=== PATIENT | male | born 1995 | race Caucasian/White ===

== ENCOUNTER → 2020-08-27 12:14 | Outpatient (BNVA) | payer OTHER, SELFPAY | PROVIDERS: Visit Provider Physician Assistant Medical | DX: M72.2 Plantar fascial fibromatosis (principal) | CPT/HCPCS: 73610; 99203 ==

== ENCOUNTER → 2020-09-07 09:52 | Outpatient (BNVA) | payer OTHER, SELFPAY | PROVIDERS: Visit Provider Physician Assistant Medical | DX: M72.2 Plantar fascial fibromatosis (principal) | CPT/HCPCS: 99213 ==

== ENCOUNTER 2021-05-28 00:17 | Emergency (ER) | payer OTHER, SELFPAY ==
[2021-05-28 00:42] LABS: MANUAL DIFF FLAG NO
[2021-05-28 00:44] LABS: Basophils Absolute Auto 0.1 X10*3/uL (0.0-0.2); Basophils Percent Auto 0.8 % (0-2); Eosinophils Absolute Auto 0.3 X10*3/uL (0.0-0.4); Eosinophils Percent Auto 3.4 % (0-4); Hematocrit 42.1 % (42.0-52.0); Hemoglobin 14.7 g/dl (14.0-18.0); Imm Gran Abs Auto 0.02 X10*3/uL (0.00-0.03); Imm Gran Pct Auto 0.2 % (0.0-0.4); Lymphocytes Absolute Auto 3.5 X10*3/uL (1.2-4.9); Lymphocytes Percent Auto 37.7 % (20-40); Mean Corpuscular HGB Conc 34.9 g/dl (31.0-36.0); Mean Corpuscular Hemoglobin 31.1 pg (27.0-33.0); Mean Platelet Volume 8.9 fL (9.4-12.4); Monocytes Absolute Auto 0.5 X10*3/uL (0.1-1.2); Monocytes Percent Auto 5.1 % (2-11); Neutrophils Absolute Auto 4.9 x10*3/uL (2.0-8.3); Neutrophils Percent Auto 52.8 % (45-73); Platelet Count 338 X10*3/uL (160-400); Red Blood Count 4.73 X10*6/uL (4.60-5.80); Red Cell Distribution Width 11.9 % (11.0-16.0); White Blood Count 9.2 X10*3/uL (4.8-10.8)
[2021-05-28 00:50] VITALS: BP 146/80; PULSE 87; RESP 18; TEMP 36.8; O2SAT 97; BMI 35.4
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
[2021-05-28 01:14] LABS: Alanine Aminotransferase 33 U/L (0-40); Albumin Level 4.7 g/dL (3.5-5.0); Alkaline Phosphatase 53 U/L (39-117); Amylase 39 U/L (28-100); Anion Gap 14 (12-20); Aspartate Amino Transferase 20 U/L (5-37); Bilirubin Direct 0.2 mg/dL (0.0-0.5); Bilirubin Total 0.6 mg/dL (0.0-1.0); Blood Urea Nitrogen 15 mg/dL (9-16); Calcium 9.6 mg/dL (8.4-10.2); Carbon Dioxide 23 mmol/L (22-29); Chloride 105 mmol/L (96-108); Creatinine Clr Calc Pharmacy 129.8; Estimated Glomerular Filt Rate > 60; Glucose Random 98 mg/dL (60-115); Lipase 16 U/L (8-78); Sodium 138 mmol/L (135-145); Total Protein 7.2 g/dL (6.5-8.0)
[2021-05-28] MEDS: Post Exposure Medication Kit 1 KIT PO (01:29)
--- NOTE | 2021-05-28 01:30 | PC.NURSE ---
pt given post exposure kit. Reviewed medication. Pt a&o, no sob or chest pain. Review discharge instructions .
[2021-05-29 08:25] LABS: HBc Num1 0.07 S/CO (0.00-0.79); Hepatitis B Core Antibody Nonreactive (Nonreactive); ~HepC Num1 0.08 S/CO (0.00-0.79); ~Hepatitis B Surface Antibody REACTIVE (Nonreactive); ~Hepatitis C Antibody Nonreactive (Nonreactive)
[2021-05-29 09:17] LABS: HBsAGNum1 0.22 S/CO (0.00-0.99); HIV AB/AG Nonreactive (Nonreactive); HIV Num 1 0.05 S/CO (0.00-0.99); Hepatitis B Surface Antigen Negative (Negative)
== END 2021-05-28 01:38 | disposition home or self-care (01) ==
PROVIDERS: Physician Assistant Medical; Emergency Provider Internal Medicine
DX: Z04.2 Encounter for examination and observation following work accident (principal); Z77.21 Contact with and (suspected) exposure to potentially hazardous body fluids
CPT/HCPCS: 36415; 80048; 80076; 82150; 83690; 85025; 86704; 86706; 86803; 87340; 87389; 99283

== ENCOUNTER → 2021-05-29 08:47 | Outpatient (BNVA) | payer OTHER, SELFPAY | PROVIDERS: Visit Provider Physician Assistant Medical | DX: Z77.21 Contact with and (suspected) exposure to potentially hazardous body fluids (principal) | CPT/HCPCS: 99204 ==

== ENCOUNTER → 2021-06-03 10:45 | Outpatient (BNVA) | payer OTHER, SELFPAY | PROVIDERS: Visit Provider Physician Assistant Medical | DX: Z77.21 Contact with and (suspected) exposure to potentially hazardous body fluids (principal) | CPT/HCPCS: 99213 ==

== ENCOUNTER → 2021-06-11 09:38 | Outpatient (BNVA) | payer OTHER, SELFPAY | DX: Z77.21 Contact with and (suspected) exposure to potentially hazardous body fluids (principal) | CPT/HCPCS: 36415; 82150; 82565; 84450; 84460; 85025; 99211 ==

== ENCOUNTER 2022-06-12 20:41 | Emergency (ER) | payer OTHER, SELFPAY ==
--- NOTE | ~2022-06-12 | XR_ITS ---
EXAMINATION: XR KNEE, LEFT CLINICAL INFORMATION: Reason for Exam Fall/pain COMPARISON: None TECHNIQUE: 4 views of the knee FINDINGS: No acute fracture or dislocation. Joint spaces are maintained. No joint effusion. Soft tissues are unremarkable. XR/XR knee LT 4V IMPRESSION: * No acute osseous abnormality. * Joint spaces are maintained without significant degenerative change.
--- NOTE | ~2022-06-12 | XR_ITS ---
EXAMINATION: XR ELBOW, LEFT CLINICAL INFORMATION: Pain COMPARISON: None TECHNIQUE: 3 views of the elbow XR/XR elbow LT min 3V FINDINGS/IMPRESSION: No acute fracture or dislocation. Joint spaces are maintained. No joint effusion. Mild soft tissue swelling in the arm. IMPRESSION: No acute fracture or dislocation. Mild soft tissue swelling in the arm.
[2022-06-12 20:45] VITALS: BP 137/83; PULSE 103; RESP 16; O2SAT 98; BMI 32.3
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
== END 2022-06-12 23:18 | disposition home or self-care (01) ==
PROVIDERS: Emergency Provider Emergency Medicine
DX: S80.02XA Contusion of left knee, initial encounter (principal); S50.312A Abrasion of left elbow, initial encounter; W01.0XXA Fall on same level from slipping, tripping and stumbling without subsequent striking against object, initial encounter; Y93.9 Activity, unspecified; Y92.410 Unspecified street and highway as the place of occurrence of the external cause; Y99.0 Civilian activity done for income or pay
CPT/HCPCS: 73080; 73564; 99282; 99283

== ENCOUNTER → 2022-06-13 10:22 | Outpatient (BNVA) | payer OTHER, SELFPAY | PROVIDERS: Visit Provider Internal Medicine | DX: S80.212A Abrasion, left knee, initial encounter (principal); S50.312A Abrasion of left elbow, initial encounter; W18.39XA Other fall on same level, initial encounter | CPT/HCPCS: 99202 ==

== ENCOUNTER → 2022-06-16 07:58 | Outpatient (BNVA) | payer OTHER, SELFPAY | PROVIDERS: Visit Provider Physician Assistant Medical | DX: S80.02XA Contusion of left knee, initial encounter (principal); S50.02XA Contusion of left elbow, initial encounter; W01.0XXA Fall on same level from slipping, tripping and stumbling without subsequent striking against object, initial encounter | CPT/HCPCS: 99213 ==

== ENCOUNTER 2023-12-30 18:03 | Emergency (ER) | payer OTHER, SELFPAY ==
--- NOTE | ~2023-12-30 | XR_ITS ---
EXAMINATION: XR FINGER, RIGHT CLINICAL INFORMATION: Fourth finger laceration COMPARISON: None available. TECHNIQUE: Two views of the right ring finger. PA view of the hand. FINDINGS: The bones and soft tissues are normal. No fracture. Alignment is anatomic. Joint spaces are maintained. XR/XR finger RT min 2V IMPRESSION: Normal finger radiographs. Electronically signed by: Lore Pacheco MD 12/30/2023 09:04 PM EDT RP
[2023-12-30 19:24] VITALS: BP 135/84; PULSE 85; RESP 18; TEMP 36.6; O2SAT 100; BMI 34.4
--- NOTE | 2023-12-30 19:24 | ED_ITS ---
HPI - Extremity Injury (Upper) General Chief Complaint: Extremity Injury, Upper Stated Complaint: rt hand closed in the door-injury at work Time Seen by Provider: 12/30/23 21:07 Source: patient Limitations: no limitations History of Present Illness ED Provider: Marie Coombs PA-C HPI narrative: 28-year-old male presents with a hand injury. Patient states he shut his hand in a car door, injuring his right ring finger, sustaining a laceration. Tetanus is up-to-date. Related Data Previous Rx's ?Medication ?Instructions ?Recorded ondansetron 4 mg disintegrating 4 mg PO ONCE PRN nausea and 05/28/21 tablet vomiting #30 tabs Allergies Allergy/AdvReac Type Severity Reaction Status Date / Time Sulfa (Sulfonamide Allergy Unknown HIVES Verified 12/30/23 19:26 Antibiotics) Review of Systems Review of Systems: Yes all other systems are reviewed and are negative Constitutional: Constitutional: Denies fatigue and Denies fever(s) Musculoskeletal: Musculoskeletal: Denies arthralgias and Denies tingling Neurologic: Denies tingling Endocrine: Endocrine: Denies fatigue PMFSH Past Medical History Attestation statement: The following information was validated with the patient. Social History Social History Advance Directives: No Advance Directives Information Provided: No Do you have a plan to hurt others: No Plan Physical Exam Vital Signs: Vital Signs: Last Vital Signs Temp 98.3 F 12/30/23 21:43 Pulse 78 12/30/23 21:43 Resp 16 12/30/23 21:43 BP 129/80 12/30/23 21:43 Pulse Ox 98 12/30/23 21:43 O2 Del Method Room Air 12/30/23 21:43 BMI result Body Mass Index 34.4 Const: General: cooperative Resp: Effort & Inspection: normal respiratory effort Cardio: Other: Normal peripheral perfusion Extrem: Other: 2 cm linear laceration over the DIP of t he right ring finger, no longer bleedi ng, overlying tissue was somewhat macerated Psych: Other: Calm cooperative Course Course Course Narrative: This is an RME: Additional HPI, ROS, PE not included below will be deferred to primary provider. RME assessment and note performed by: Lennie Monge PA-C This is a [id number]-male who presents to the ER with complaints of fourth digit laceration. 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 When cm laceration noted to the DIP. Tenderness palpation in this region. Plan: xray finger Medical Decision Making Medical Decision Making MDM Narrative: 28-year-old male presents with a hand injury. Patient states he shut his hand in a car door, injuring his right ring finger, sustaining a laceration. Tetanus is up-to-date. No relevant chronic issues History: Per patient I have considered the following differential diagnoses: Fracture, dislocation, contusion, abrasion, laceration Plan: X-ray obtained from triage, no injury of the bone. This is a simple laceration repair. I have independently reviewed the following tests: X-ray right finger, XR/XR finger RT min 2V IMPRESSION: Normal finger radiographs. Electronically signed by: Lore Pacheco MD 12/30/2023 09:04 PM EDT Procedures Laceration Laceration 1: Site: hand Side (If applicable): right Size (cm): 2 Description: linear Depth: simple, single layer Local Anesthetic: lidocaine 2% and with epi Amount of anesthesia used (mL): 2 Pre-repair: irrigated extensively Skin layer closed with: nylon Size (cm): 5-0 Number of sutures: 4 Technique: simple, interrupted Discharge Plan Discharge Clinical Impression: Finger laceration Patient Disposition: Home, Self-Care Instructions: Laceration (ED) Additional Instructions: For stitches were used to repair the laceration. See home care instructions. Do not soak your hand in water excessively. Taking a shower is appropriate. Watch for signs of infection which would include redness, swelling or pus draining from the site or fever. Have the stitches removed in 7 days. Prescriptions: No Action ondansetron 4 mg tablet,disintegrating 4 mg PO ONCE PRN (Reason: nausea and vomiting) Qty: 30 0RF Print Language: Greenlandic
[2023-12-30 21:43] VITALS: BP 129/80; PULSE 78; RESP 16; TEMP 36.8; O2SAT 98
[2023-12-30 22:40] VITALS: BP 129/80; PULSE 78; RESP 16; TEMP 36.8; O2SAT 98
== END 2023-12-30 22:41 | disposition home or self-care (01) ==
PROVIDERS: Emergency Provider Student in an Organized Health Care Education/Training Program
DX: M79.641 Pain in right hand (principal); S61.411A Laceration without foreign body of right hand, initial encounter; W23.1XXA Caught, crushed, jammed, or pinched between stationary objects, initial encounter; Y93.89 Activity, other specified; Y92.810 Car as the place of occurrence of the external cause; Y99.0 Civilian activity done for income or pay
CPT/HCPCS: 12001; 73140; 99283; 99284

== ENCOUNTER → 2023-12-31 09:45 | Outpatient (BNVA) | payer OTHER, SELFPAY | PROVIDERS: Visit Provider Physician Assistant | DX: Z09 Encounter for follow-up examination after completed treatment for conditions other than malignant neoplasm (principal); S61.214A Laceration without foreign body of right ring finger without damage to nail, initial encounter; W23.0XXA Caught, crushed, jammed, or pinched between moving objects, initial encounter | CPT/HCPCS: 99202 ==

== ENCOUNTER → 2024-01-06 08:58 | Outpatient (BNVA) | payer OTHER, SELFPAY | PROVIDERS: Visit Provider Physician Assistant | DX: Z48.02 Encounter for removal of sutures (principal); S61.214A Laceration without foreign body of right ring finger without damage to nail, initial encounter; W23.0XXA Caught, crushed, jammed, or pinched between moving objects, initial encounter | CPT/HCPCS: 99213 ==

== ENCOUNTER 2024-02-29 12:12 | Emergency (ER) | payer BC, SELFPAY ==
--- NOTE | ~2024-02-29 | CT_ITS ---
EXAMINATION: CT ABDOMEN AND PELVIS WITH CONTRAST CLINICAL INFORMATION: Kidney stones, pyelonephritis COMPARISON: None available. TECHNIQUE: Multidetector volumetric images were obtained from the superior aspect of the liver through the pubic symphysis following administration 85 mL of Omnipaque 350 intravenous contrast. Sagittal and coronal reformatted images were obtained on the technologist's workstation. Oral contrast: No This CT examination was performed using dose optimization techniques as appropriate, variously including the following: *Automated exposure control *Adjustment of mA and/or kV according to patient size (this includes techniques or standardized protocols for targeted exams where dose is matched to indication/reason for exam; i.e. extremities or head) *Use of iterative reconstruction technique DLP: 809 mGy-cm FINDINGS: LUNG BASES: The visualized lung bases are unremarkable. LIVER, GALLBLADDER, AND BILIARY TREE: The liver is normal in size, shape, and attenuation. No focal hepatic lesion or biliary ductal dilatation is present. The gallbladder is unremarkable with no evidence of radiopaque gallstones, gallbladder wall thickening, or obvious pericholecystic inflammatory changes. PANCREAS: Unremarkable. SPLEEN: Splenomegaly. Trace fluid along the posterior margin of the spleen. ADRENAL GLANDS: Unremarkable. KIDNEYS AND URETERS: Punctate calcification in the lower pole of the right kidney with adjacent dilated calyx with overlying cortical thinning. There is also subtle amorphous density in the nondilated renal pelvis which may represent calcification or renally excreted contrast. Nephrograms are symmetric. BLADDER: Unremarkable. GASTROINTESTINAL TRACT: The small and large bowel are unremarkable. The appendix is unremarkable. ABDOMINAL WALL: No significant hernia is appreciated. LYMPH NODES: There are mildly enlarged lymph nodes throughout a slightly hazy small bowel mesentery images nonspecific. VASCULAR: Unremarkable. PELVIC VISCERA: Unremarkable. OSSEOUS STRUCTURES: Unremarkable. CT/CT abdomen pelvis w IV con IMPRESSION: 1. There is a punctate calcification or excreted contrast in the lower pole of the right kidney with adjacent mildly dilated calyx and overlying cortical thinning. There is also subtle amorphous density in the nondilated renal pelvis which may represent calcification or renally excreted contrast. 2. Splenomegaly. 3. Mildly enlarged lymph nodes throughout a slightly hazy small bowel mesentery, nonspecific. Trace fluid along the posterior margin of the spleen. Fleischner guidelines were followed. Electronically signed by: Rocky Varma MD 02/29/2024 07:30 PM EST RP
--- NOTE | ~2024-02-29 | XR_ITS ---
EXAMINATION: XR CHEST CLINICAL INFORMATION: fevers COMPARISON: Chest radiograph November 02, 2017 TECHNIQUE: 2 views of the chest were obtained. FINDINGS: Prominent pulmonary vasculature. The heart is normal in size. No focal consolidation. No pleural effusion. No pneumothorax. XR/XR chest 2V IMPRESSION: Prominent pulmonary vasculature. Electronically signed by: Norman Phelps MD 02/29/2024 07:47 PM EST
[2024-02-29 12:34] VITALS: BP 155/79; PULSE 79; RESP 16; TEMP 36.7; O2SAT 97; BMI 34.4
--- NOTE | 2024-02-29 12:39 | ED_ITS ---
HPI - Male Genitourinary General Chief complaint: Urogenital-Male Stated complaint: Kidney/liver issues sent by urgent care Time Seen by Provider: 02/29/24 16:42 History of Present Illness ED Provider: Tuan SEGOVIA Narrative: The patient is a 28-year-old male who is generally in good health. He has been sick for about 9 days. Apparently his children have been sick with respiratory viruses during the last few weeks and he assumed that he had caught some kind of virus from 1 of his children. He says that he has ago, on ThursdayFebruary 20 he had a temperature of 102 degrees. He had to work the next few days and so took ibuprofen and acetaminophen to manage his fevers while he worked. On ThursdayFebruary 23 he went to an urgent care office and was prescribed a course of azithromycin and a course of prednisone. He finished these medications yesterday morning. He says that he believes he has continued to have some fevers despite these medications. He also noticed that his urine has been dark for the last several days. Today he went back to the urgent care center where he gave a urine sample that looked quite dark and they referred him to the emergency room. The patient says that he has had what he describes as ?postnasal drip? but he has not really had a lot of other symptoms. No definite headaches. No definite sore throat. No definite runny nose. No definite coughing. No abdominal pain. No diarrhea. No dysuria. He says he has been experiencing night sweats. he has not had a significant sore throat. He has had a tonsillectomy. He has felt some swollen lymph nodes on his neck. Related Data Previous Rx's ?Medication ?Instructions ?Recorded ondansetron 4 mg disintegrating 4 mg PO ONCE PRN nausea and 05/28/21 tablet vomiting #30 tabs Allergies Allergy/AdvReac Type Severity Reaction Status Date / Time Sulfa (Sulfonamide Allergy Unknown HIVES Verified 02/29/24 12:36 Antibiotics) Review of Systems 2 Review of Systems: Yes all other systems are reviewed and are negative PMFSH Social History Social History Advance Directives: No Advance Directives Information Provided: No Do you have a plan to hurt others: No Plan Physical Exam 2 Vital Signs: Vital Signs: Last Vital Signs Temp 98.1 F 02/29/24 20:22 Pulse 90 02/29/24 20:22 Resp 20 02/29/24 20:22 BP 119/64 02/29/24 20:22 Pulse Ox 97 02/29/24 20:22 O2 Del Method Room Air 02/29/24 20:22 BMI result Body Mass Index 34.4 Const: Other: The patient is a 28-year-old male who looks as though he is ordinarily in good health. He looks somewhat drawn and worn out but he does not appear in acute distress. HEENT: Other: Face is symmetrical. The posterior pharynx does not show any significant erythema or exudate. There is no tonsillar tissue apparent. Airway is clear. Eyes: Other: The patient's eyelids look mildly puffy. Pupils are round equal and reactive. Extraocular movements are intact. No conjunctival injection. Neck: Other: The neck is supple. There was some tender adenopathy in the left posterior cervical chain. Resp: Other: No increased work of breathing. I that there were some slight adventitious sounds, Possibly crackles, in the right midlung field. No other abnormalities on exam. Cardio: Rate: regular rate Heart sounds: S1 normal heart sound present and Murmur heart sound present ( No cardiac murmur) GI: Other: abdomen is soft and nontender : General: Yes no CVA tenderness Back/Spine/Pelvis: Back: no CVA tenderness Skin: Other: skin is pale and dry. No rash. Neuro: Other: The patient is awake and alert with normal mental status. Cranial nerves are intact. He moves extremities normally. He is neurologically intact. Demeanor is benign. Extrem: Other: No peripheral edema. Course Course Course Narrative: RME: 28 yold male presents to the for dark urine. patient seny by urgent care for dark urine. patient presently being treated for walking pneumonia, but denies any chest pain or SOB. labs UA ordered. Medications Administered Discontinued Medications Generic Name Dose Route Start Last Admin Trade Name Freq PRN Reason Stop Dose Admin Sodium Chloride 1,000 mls @ 999 mls/hr 02/29/24 18:00 02/29/24 18:10 Ns IV 02/29/24 19:00 999 mls/hr .Q1H1M MICHAEL Administration Iohexol 100 ml 02/29/24 17:07 02/29/24 17:07 Iohexol 350 Mg/Ml 100 Ml Infus..Btl IV 02/29/24 17:08 85 ml ONCE ONE Administration Medical Decision Making Medical Decision Making [facility] Narrative: The patient is a generally healthy 28-year-old who presents with an approximately 9 day illness characterized by fevers, night sweats and a sense of congestion but without a kinsey cough or shortness of breath. He experienced no improvement with a course of azithromycin and prednisone. Today he return to urgent care center where he was found to have dark urine and was referred to the emergency room. Here his bilirubin is somewhat elevated and he has some other LFT abnormalities. A CT scan of the abdomen and pelvis had been ordered at triage. His blood work is remarkable for an elevated white count with a significant lymphocytosis characterized by atypical lymphocytes. This is suggestive of the possibility of mononucleosis. A Monospot was positive. I think the patient probably has mononucleosis and that this likely accounts for all of his symptoms. before the Monospot result was available hepatitis panel had also been sent. The patient's CT scan show mesenteric adenopathy and splenomegaly that I suspect is also consistent with mononucleosis. The CT scan also included what I suspect is an incidental finding related to the right kidney: IMPRESSION: 1. There is a punctate calcification or excreted contrast in the lower pole of the right kidney with adjacent mildly dilated calyx and overlying cortical thinning. There is also subtle amorphous density in the nondilated renal pelvis which may represent calcification or renally excreted contrast. Overall I felt the patient could be discharged with a diagnosis of mononucleosis and recommendation for supportive care at home. 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 He was given a work note for light duty. He was advised to use sparing doses of ibuprofen for symptoms. The patient does not have a primary care doctor. He is encouraged to try to get a primary care doctor. Foot with regard to the finding related to the the right kidney on his CT scan I suspect this is an incidental finding of little clinical relevance. Nevertheless he should follow-up with urology to discuss this finding. If the patient feels significantly worse he should return to the emergency room. Hepatitis panel is still pending. Lab Data 02/29/24 14:14 02/29/24 14:14 Labs: Lab Results 02/29/24 02/29/24 02/29/24 Range/Units 14:14 14:18 17:15 WBC 23.8 H (4.8-10.8) X10*3/uL RBC 4.92 (4.60-5.80) X10*6/uL Hgb 15.2 (14.0-18.0) g/dl Hct 43.4 (42.0-52.0) % MCV 88.2 (80.0-98.0) fL MCH 30.9 (27.0-33.0) pg MCHC 35.0 (31.0-36.0) g/dl RDW 12.8 (11.0-16.0) % Plt Count TNP MPV TNP Immature Gran % (Auto) Cancelled Neut % (Auto) Cancelled Lymph % (Auto) Cancelled [place] % (Auto) Cancelled Eos % (Auto) Cancelled Baso % (Auto) Cancelled Lymph # (Auto) Cancelled [place] # (Auto) Cancelled Eos # (Auto) Cancelled Baso # (Auto) Cancelled Abs Immat Gran (auto) Cancelled Absolute Neuts (auto) Cancelled Absolute Nucleated RBC 0.000 (0.0-0.012) X10*3/uL Nucleated RBC % (auto) 0.0 (0.0-0.2) /100WBC Neutrophils % (Manual) 9 L (45-73) % Band Neutrophils % 0 L (3-5) % Lymphocytes % (Manual) 16 L (20-40) % Atypical Lymphs % (Man) 66 H (0-6) % Monocytes % (Manual) 9 (2-11) % Abs Neuts (Manual) 2.1 (2.0-8.3) X10*3/uL Lymphocytes # (Manual) 3.8 (1.2-4.9) X10*3/uL Atyp Lymphs # (Manual) 15.7 x10*3/uL Monocytes # (Manual) 2.1 H (0.1-1.2) X10*3/uL Smudge Cells PRESENT Platelet Estimate NORMAL (NORMAL) Plt Morphology Comment NOTED RBC Morphology NORMAL Smear Path Review SEE NOTE PT 11.1 (10.9-12.4) SEC INR 1.0 (0.9-1.1) Sodium 139 (135-145) mmol/L Potassium 3.6 (3.3-5.1) mmol/L Chloride 104 (96-108) mmol/L Carbon Dioxide 30 H (22-29) mmol/L Anion Gap 9 L (12-20) BUN 10 (9-16) mg/dL Creatinine 0.88 (0.5-1.4) mg/dL Estim Creat Clear Calc 151.5 Estimated GFR > 60 Random Glucose 105 (60-115) mg/dL Lactic Acid 1.0 (0.5-2.0) mmol/L Calcium 8.5 D (8.4-10.2) mg/dL Total Bilirubin 3.1 H (0.0-1.0) mg/dL Direct Bilirubin 2.4 H (0.0-0.5) mg/dL AST 295 H (5-37) U/L ALT 705 H (0-40) U/L Alkaline Phosphatase 209 H (39-117) U/L Total Creatine Kinase 10 L (38-174) U/L C-Reactive Protein 0.84 H (< or = 0.50) mg/dL Total Protein 7.3 (6.5-8.0) g/dL Albumin 3.8 (3.5-5.0) g/dL Lipase 49 (8-78) U/L Urine Color Dark Yellow Urine Appearance Clear Urine pH 6.0 (5.0-9.0) Ur Specific [place] >= 1.030 H (1.005-1.025) Urine Protein 100 (2+) H (Neg-Trace) mg/dL Urine Glucose (UA) Negative (Negative) mg/dL Urine Ketones Trace (Negative) mg/dL Urine Blood Negative (Negative) Urine Nitrite Positive H (Negative) Ur Leukocyte Esterase Small (1+) H (Negative) Urine RBC 0-2 (0-2) /HPF Urine WBC 0-5 (0-5) /HPF Ur Squamous Epith Cells 3-5 (0-2) /HPF Urine Bacteria None Seen (None Seen) Hyaline Casts 3-5 (0-2) /LPF Acetaminophen (<30) mcg/mL Monoscreen (Negative) Influenza Type A (PCR) (Negative) Influenza Type B (PCR) (Negative) RSV RNA Qual (PCR) (Negative) SARS-CoV-2 RNA (RT-PCR) (Negative) 02/29/24 02/29/24 Range/Units 17:23 18:10 WBC (4.8-10.8) X10*3/uL RBC (4.60-5.80) X10*6/uL Hgb (14.0-18.0) g/dl Hct (42.0-52.0) % MCV (80.0-98.0) fL MCH (27.0-33.0) pg MCHC (31.0-36.0) g/dl RDW (11.0-16.0) % Plt Count MPV Immature Gran % (Auto) Neut % (Auto) Lymph % (Auto) [place] % (Auto) Eos % (Auto) Baso % (Auto) Lymph # (Auto) [place] # (Auto) Eos # (Auto) Baso # (Auto) Abs Immat Gran (auto) Absolute Neuts (auto) Absolute Nucleated RBC (0.0-0.012) X10*3/uL Nucleated RBC % (auto) (0.0-0.2) /100WBC Neutrophils % (Manual) (45-73) % Band Neutrophils % (3-5) % Lymphocytes % (Manual) (20-40) % Atypical Lymphs % (Man) (0-6) % Monocytes % (Manual) (2-11) % Abs Neuts (Manual) (2.0-8.3) X10*3/uL Lymphocytes # (Manual) (1.2-4.9) X10*3/uL Atyp Lymphs # (Manual) x10*3/uL Monocytes # (Manual) (0.1-1.2) X10*3/uL Smudge Cells Platelet Estimate (NORMAL) Plt Morphology Comment RBC Morphology Smear Path Review PT (10.9-12.4) SEC INR (0.9-1.1) Sodium (135-145) mmol/L Potassium (3.3-5.1) mmol/L Chloride (96-108) mmol/L Carbon Dioxide (22-29) mmol/L Anion Gap (12-20) BUN (9-16) mg/dL Creatinine (0.5-1.4) mg/dL Estim Creat Clear Calc Estimated GFR Random Glucose (60-115) mg/dL Lactic Acid (0.5-2.0) mmol/L Calcium (8.4-10.2) mg/dL Total Bilirubin (0.0-1.0) mg/dL Direct Bilirubin (0.0-0.5) mg/dL AST (5-37) U/L ALT (0-40) U/L Alkaline Phosphatase (39-117) U/L Total Creatine Kinase (38-174) U/L C-Reactive Protein (< or = 0.50) mg/dL Total Protein (6.5-8.0) g/dL Albumin (3.5-5.0) g/dL Lipase (8-78) U/L Urine Color Urine Appearance Urine pH (5.0-9.0) Ur Specific [place] (1.005-1.025) Urine Protein (Neg-Trace) mg/dL Urine Glucose (UA) (Negative) mg/dL Urine Ketones (Negative) mg/dL Urine Blood (Negative) Urine Nitrite (Negative) Ur Leukocyte Esterase (Negative) Urine RBC (0-2) /HPF Urine WBC (0-5) /HPF Ur Squamous Epith Cells (0-2) /HPF Urine Bacteria (None Seen) Hyaline Casts (0-2) /LPF Acetaminophen < 3 (<30) mcg/mL Monoscreen Positive A (Negative) Influenza Type A (PCR) NEGATIVE (Negative) Influenza Type B (PCR) NEGATIVE (Negative) RSV RNA Qual (PCR) NEGATIVE (Negative) SARS-CoV-2 RNA (RT-PCR) NEGATIVE (Negative) Discharge Plan Discharge Clinical Impression: Infectious mononucleosis Patient Disposition: Home, Self-Care Instructions: Mononucleosis (ED) Additional Instructions: You have tested positive for mononucleosis. Mononucleosis is a viral illness for which there is no specific treatment. The duration of symptoms is highly variable but can last up to a few weeks. Please rest and take it easy as much as you can over the next several days. May take 400 mg of ibuprofen up to 3 times a day as needed for symptoms. I would avoid acetaminophen at the moment. Drink a lot of fluids. The CT scan shows that your spleen is somewhat large. Please avoid any activities that might put you at risk for an injury to your spleen. There is also an incidental finding on your CT scan regarding your right kidney. I would recommend following up with the urologist to see if this is a finding that needs to be pursued or not. Please work on getting a regular primary care doctor. I would recommend light duty for the next week. Return to the emergency room if significantly worse. Prescriptions: No Action ondansetron 4 mg tablet,disintegrating 4 mg PO ONCE PRN (Reason: nausea and vomiting) Qty: 30 0RF Referrals: [facility] [place] Urology Services [Provider Group] (Incidental finding on CT scan regarding right kidney) Interventions: ED Discharge Assessment Last Done: 02/29/24 20:22 Discharge Date/Time: 02/29/24 20:23 Print Language: Montserratian
[2024-02-29 14:27] LABS: Hematocrit 43.4 % (42.0-52.0); Hemoglobin 15.2 g/dl (14.0-18.0); Mean Corpuscular Hemoglobin 30.9 pg (27.0-33.0); Mean Corpuscular Volume 88.2 fL (80.0-98.0); PLT CLUMP 1; Red Blood Count 4.92 X10*6/uL (4.60-5.80)
[2024-02-29 14:29] LABS: Red Cell Distribution Width 12.8 % (11.0-16.0)
[2024-02-29 14:30] LABS: WBC ABN SCTR FOR CBC 1
[2024-02-29 14:51] LABS: Alanine Aminotransferase 705 U/L (0-40); Albumin Level 3.8 g/dL (3.5-5.0); Alkaline Phosphatase 209 U/L (39-117); Anion Gap 9 (12-20); Aspartate Amino Transferase 295 U/L (5-37); Bilirubin Total 3.1 mg/dL (0.0-1.0); Blood Urea Nitrogen 10 mg/dL (9-16); Calcium 8.5 mg/dL (8.4-10.2); Carbon Dioxide 30 mmol/L (22-29); Chloride 104 mmol/L (96-108); Creatinine Clr Calc Pharmacy 151.5; Estimated Glomerular Filt Rate > 60; Glucose Random 105 mg/dL (60-115); Potassium 3.6 mmol/L (3.3-5.1); Sodium 139 mmol/L (135-145); Total Protein 7.3 g/dL (6.5-8.0)
[2024-02-29 15:03] LABS: Appearance Urine Clear; Color Urine Dark Yellow; Glucose Urine UA Negative (Negative); Leukocyte Esterase Urine Small (1+) (Negative); Nitrite Urine Positive (Negative); Specific Gravity - Urine >= 1.030 (1.005-1.025); UMIC TRIGGER UACC YES; Urine Blood Negative (Negative); Urine Ketones Trace mg/dL (Negative); Urine Protein 100 (2+) mg/dL (Neg-Trace)
[2024-02-29 15:12] LABS: Bacteria Urine None Seen (None Seen); RBC Urine 0-2 /HPF (0-2); UACC Culture Trigger YES; WBC Urine 0-5 /HPF (0-5)
[2024-02-29 15:33] LABS: Atypical Lymphs Percent Manual 66 % (0-6); Band Neutrophils Percent 0 % (3-5); Lymphocytes Percent Manual 16 % (20-40); Monocytes Percent Manual 9 % (2-11); Neutrophils Percent Manual 9 % (45-73); Platelet Estimate NORMAL (NORMAL); Platelet Morphology Comment NOTED; RBC Morphology NORMAL; Smudge Cells PRESENT
[2024-02-29 15:34] LABS: Atypical Lymph Absolute Manual 15.7 x10*3/uL; Lymphocytes Absolute Manual 3.8 X10*3/uL (1.2-4.9); Monocytes Absolute Manual 2.1 X10*3/uL (0.1-1.2); Neutrophils Absolute Manual 2.1 X10*3/uL (2.0-8.3); White Blood Count 23.8 X10*3/uL (4.8-10.8)
[2024-02-29 16:34] LABS: Lipase 49 U/L (8-78)
[2024-02-29 16:52] VITALS: BP 125/77; PULSE 83; RESP 18; TEMP 37; O2SAT 96
[2024-02-29] MEDS: iohexoL 350 MG/ML 100 ML INFUS..BTL IV (17:07)
[2024-02-29 17:22] LABS: Bilirubin Direct 2.4 mg/dL (0.0-0.5)
[2024-02-29 17:44] LABS: Prothrombin Time 11.1 SEC (10.9-12.4)
[2024-02-29 17:49] LABS: Acetaminophen LAB < 3 mcg/mL (<30)
[2024-02-29] MEDS: 0.9 % Sodium Chloride 1,000 ML 999 ML IV (18:10)
[2024-02-29 18:11] LABS: C Reactive Protein 0.84 mg/dL (< or = 0.50)
[2024-02-29 18:38] LABS: Monotest Positive (Negative)
[2024-02-29 19:56] VITALS: BP 119/64; PULSE 90; RESP 20; TEMP 36.7; O2SAT 97
[2024-02-29 19:56] LABS: Influenza A PCR NEGATIVE (Negative); Influenza B PCR NEGATIVE (Negative); Resp Syncy Virus RNA Qual PCR NEGATIVE (Negative); SARS COV2 PCR INHOUSE NEGATIVE (Negative)
[2024-02-29 20:22] VITALS: BP 119/64; PULSE 90; RESP 20; TEMP 36.7; O2SAT 97
[2024-03-03 14:39] LABS: HBS Num1 517.67 mIU/mL (0-7.99); HBc Num1 0.12 S/CO (0.00-0.79); HBsAGNum1 0.39 S/CO (0.00-0.99); Hepatitis A Antibody IgM 0.16 Index (0-0.79); Hepatitis B Core Antibody Nonreactive (Nonreactive); Hepatitis B Surface Antigen Negative (Negative); ~Hepatitis A Antibody IgM Nonreactive (Nonreactive); ~Hepatitis B Surface Antibody REACTIVE (Nonreactive); ~Hepatitis C Antibody Nonreactive (Nonreactive)
== END 2024-02-29 20:23 | disposition home or self-care (01) ==
PROVIDERS: Physician Assistant; Emergency Provider Emergency Medicine
DX: B27.90 Infectious mononucleosis, unspecified without complication (principal); Z03.818 Encounter for observation for suspected exposure to other biological agents ruled out; R09.89 Other specified symptoms and signs involving the circulatory and respiratory systems
CPT/HCPCS: 0241U; 36415; 71046; 74177; 80053; 80143; 81001; 81003; 82248; 82550; 83605; 83690; 85007; 85027; 85610; 86140; 86308; 86704; 86706; 86709; 86803; 87040; 87086; 87340; 99284; Q9967

== ENCOUNTER 2024-03-05 09:12 | Outpatient (AMB) | payer BC, SELFPAY ==
--- NOTE | 2024-03-05 10:07 | MHC.OFFWIV ---
Intake Vital Signs 03/05/24 10:14 Weight 239 lb BP 118/70 Blood Pressure Location Lt brachial Position Sitting Pulse 80 Pulse Source Pulse Oximeter Temp 98.1 F Temp Source Oral Pulse Oximetry (%) 98 Oxygen Delivery Method Room Air Intake Visit Reasons: EP + [place] thursday, pain increased since Intake Note: Patient here for [place] and has pain that has increased since he was first diagnosed. Patient Tobacco Use Status: Never used Tobacco Allergies Sulfa (Sulfonamide Antibiotics) Allergy (Unknown, Verified 05/12/24 08:06) HIVES Do you need a note to return to daycare/school/sports/work: No HPI EP + [place] thursday, pain increased since HPI Details Patient is a 28 year old male who complains of severe pain to the bilateral sides his neck, since getting diagnosed with mononucleosis last week at [facility]. He has been jaundiced since his ED visit, and this has progressed. He is also still extremely sweaty, especially when sleeping at night, and fatigued. He does not report much abdominal discomfort, and although his appetite is decreased, he can tolerate oral intake. He reports that he is trying to get adequate water intake. He is overall resting, except for a few hours a few days ago when he covered a desk shift at work. 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 He has difficulty using his arms, and feels that they are weak. He denies acute trauma, current fever, vomiting or diarrhea, chest pain or respiratory distress, abdominal or pelvic pain or back pain, dizziness or vertigo, respiratory symptoms, or other significant associated symptoms. He discussed his symptoms with his primary care who advised that he come to the walk-in for further labs. [facility] Surgical History History of knee surgery History of tonsillectomy Family History (Updated 05/12/24 @ 08:11 by José Biggs PA-C) Father COPD (chronic obstructive pulmonary disease) Mother Lung cancer Social History (Updated 05/12/24 @ 08:11 by José Biggs PA-C) Housing: House Alcohol intake: current Alcohol intake frequency: a few times a month Alcohol type: other Patient Tobacco Use Status: Never used Tobacco e-Cigarette/Vaping Use: Never Used Second Hand Smoke Exposure: No service: No Current occupational status: employed Current occupation: [employer] Current occupational exposures/hazards: No Cognitive needs: No Hearing needs: No Vision needs: No Review of Systems Const All systems reviewed & are unremarkable except as noted in HPI and below Physical Exam Vital Signs: Last Vital Signs Temp 98.1 F 03/05/24 10:14 Pulse 80 03/05/24 10:14 BP 118/70 03/05/24 10:14 Pulse Ox 98 03/05/24 10:14 Oxygen Delivery Method Room Air 03/05/24 10:14 Const General: cooperative, alert, awake, Physically active, diaphoretic, ill appearing, tired appearing and well groomed; No healthy appearing, comfortable, anxious, intoxicated appearing or poor hygiene Nutritional Appearance: average body habitus Orientation/consciousness: patient oriented x3 Limitations: no limitations HEENT Head: Yes normal to inspection, Yes normocephalic and Yes atraumatic Ears: hearing grossly normal bilaterally, external ears normal, TM's normal bilaterally and EAC's normal General nose exam: Normal external nose present, Normal nares present, No nasal polyps present, Normal nasal mucous membranes and turbinates present, Normal septum present and No nasal discharge present Face and sinus: Yes normal facial exam, Yes sinuses nontender and Yes face symmetric Mouth: Normal oral and palatal mucosa present, lip normal and tongue normal Throat: Yes posterior oropharynx normal, Yes abnormal tonsil (mildly erythematous bilaterally), No peritonsillar mass, No postnasal drainage, No uvular edema and No cobblestoning Eyes General: appearance normal, both eyes and all related structures Neck Neck: Yes normal visual inspection, Yes trachea midline, Yes supple and No anterior neck swelling Chest Chest palpation & inspection: normal palpation of entire chest wall Resp Effort & Inspection: normal respiratory effort, able to speak in complete sentences, no audible wheezes, no cough, no grunting, not labored, no nasal flaring, no retractions and symmetric chest movement Auscultation: clear to auscultation bilaterally, no crackles, no rales, no rhonchi, no wheezes, lung sounds not diminished and No rub present Cardio Palpation: normal PMI Rate: regular rate Rhythm: regular rhythm Heart sounds: S1 normal heart sound present and S2 normal heart sound present Back/Spine/Pelvis Cervical Spine: cervical muscular tenderness (B/L) and pain with cervical ROM Skin General skin exam: jaundice and other (diaphoretic, warm) Neuro General: patient oriented x3 Extrem Right upper extremity: shoulder/upper arm (weakness) Psych Appearance: grossly normal Mental Status: mental status grossly normal Speech and movement: Normal speech and movement present Affect: normal affect Attitude: cooperative Thought process: Normal thought process present Insight: Good insight present (Psych) Judgement: Good judgement present (Psych) Assessment & Plan Assessment & Plan (1) Mononucleosis: Code(s): B27.90 - Infectious mononucleosis, unspecified without complication Qualifiers: Infectious mononucleosis complication: other complications Infectious mononucleosis etiology: unspecified organism Qualified Code(s): B27.99 - Infectious mononucleosis, unspecified with other complication Plan: Patient is a 28 year old male who complains of severe pain to the bilateral sides his neck, since getting diagnosed with mononucleosis last week at [facility]. He has been jaundiced since his ED visit, and this has progressed. He is also still extremely sweaty, especially when sleeping at night, and fatigued. He does not report much abdominal discomfort, and although his appetite is decreased, he can tolerate oral intake. He reports that he is trying to get adequate water intake. He is overall resting, except for a few hours a few days ago when he covered a desk shift at work. 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 He has difficulty using his arms, and feels that they are weak. He denies acute trauma, current fever, vomiting or diarrhea, chest pain or respiratory distress, abdominal or pelvic pain or back pain, dizziness or vertigo, respiratory symptoms, or other significant associated symptoms. He discussed his symptoms with his primary care who advised that he come to the walk-in for further labs. I agree that he does need further lab work, and due to his symptoms I think further evaluation is warranted. He has exquisite tenderness to touch to the left greater than right neck muscles and trapezius muscles. On the left side he has some mild erythema to the area. Although he was diagnosed with mononucleosis and associated hepatitis, he reports that he has concern about possible Lyme disease, since he got a tick bite a few months ago that he reports was attached for a few days and engorged when he found it. He was not tested for tick-borne illnesses, or prophylactically treated. He desires evaluation for this. Since I can not evaluate him further in a timely manner, and because his some symptoms have progressed, I advised that he go back to the emergency department for further evaluation and treatment. He would benefit from pain management as well as possibly from more IV fluids. He was amenable to this, and an expect was called in to [facility] to MARIS Coombs in the [facility] Coding Level of Care Code Est Pt Level 4 (12031) Diagnoses Infectious mononucleosis, with other complication, infectious mononucleosis due to unspecified organism B27.99 Infectious mononucleosis complication: other complications Infectious mononucleosis etiology: unspecified organism
[2024-03-05 10:14] VITALS: BP 118/70; PULSE 80; TEMP 36.7; O2SAT 98
== END 2024-03-05 11:14 | disposition home or self-care (01) ==
PROVIDERS: Visit Provider Physician Assistant Medical
DX: B27.99 Infectious mononucleosis, unspecified with other complication (principal)

== ENCOUNTER → 2024-03-05 09:12 | Outpatient (BNVA) | payer BC, SELFPAY | PROVIDERS: Visit Provider Physician Assistant Medical ==

== ENCOUNTER 2024-03-05 11:40 | Emergency (ER) | payer BC, SELFPAY ==
--- NOTE | ~2024-03-05 | CT_ITS ---
CLINICAL HISTORY: R sided neck pain redness recent mono CT soft tissue neck with contrast Comparison: None Findings: Mild mucosal thickening within the paranasal sinuses. Mild prominence of adenoidal soft tissues. Unremarkable tonsils, hypopharynx and larynx. Normal epiglottis. Numerous lymph nodes within the neck soft tissues, measuring up to 1.2 cm in short axis dimension. Salivary glands are unremarkable. No sialoliths. Thyroid gland is unremarkable. Visualized lung apices are clear. No acute fractures. No soft tissue mass or fluid collection. IMPRESSION: 1. Mild lymphadenopathy within the neck. 2. Prominence of adenoidal soft tissues. This document has been electronically signed by: Brenda Cummings MD on 03/05/2024 17:58:24
--- NOTE | ~2024-03-05 | XR_ITS ---
CLINICAL HISTORY: chest pain 1 view chest x-ray Comparison: CR/SR - XR CHEST 2V - 02/29/24 17:58 EST Findings: The lungs are clear. Normal size heart. No acute fracture. IMPRESSION: 1. No acute findings. This document has been electronically signed by: Brenda Cummings MD on 03/05/2024 16:44:36
--- NOTE | ~2024-03-05 | US_ITS ---
CLINICAL HISTORY: RUQ pain, jaundice, elevated liver enzymes US abdomen limited Comparison: CT/SR - CT ABDOMEN PELVIS W IV CON - 02/29/24 17:00 EST Findings: The visualized pancreas is normal. The visualized IVC is unremarkable. The liver measures 18 cm in length. Unremarkable echogenicity. No gross evidence of focal liver lesion. Evaluation of liver parenchyma mildly limited. There is no intrahepatic bile duct dilatation. The common duct is 3 mm in diameter. The gallbladder is normal. There is no sonographic [place] sign. The main portal vein is antegrade. No ascites. IMPRESSION: There may be a mild degree of hepatomegaly. This document has been electronically signed by: Brenda Cummings MD on 03/05/2024 14:20:30
[2024-03-05 12:01] VITALS: BP 115/80; PULSE 87; RESP 20; TEMP 36.6; O2SAT 97; BMI 34.4
--- NOTE | 2024-03-05 12:06 | ED_ITS ---
HPI - General Adult General Chief complaint: General Medical Stated complaint: multiple symptoms ,sent from [facility] Time Seen by Provider: 03/05/24 13:45 Source: patient and old records reviewed Mode of arrival: ambulatory Limitations: no limitations History of Present Illness ED Provider: EAMON SEGOVIA narrative: 28 yo male no PMH here with c/o recent mono on Thursday LFTs up at that time - sent to PCP for follow up labs who could not see him went to urgent care and they referred him to ED. No ETOH use, no tylenol since 02/27. He has neck pain and shoulder pain but throat pain improving. He came here to get checked out. His chest has hurt at well some times but admits his whole body hurts. Fevers has abated since start of week. MD complaint: jaundice, neck pain Onset (ago): day(s) (02/28) Location: neck Radiation: non-radiation Severity: moderate Quality: aching Pain Consistency: constant Relieving factors: none Exacerbating factors: movement Associated symptoms: loss of appetite and malaise Treatments prior to arrival: NSAID Related Data Previous Rx's ?Medication ?Instructions ?Recorded ondansetron 4 mg disintegrating 4 mg PO ONCE PRN nausea and 05/28/21 tablet vomiting #30 tabs oxycodone 5 mg tablet 5 mg PO Q6H PRN pain #20 tabs 03/05/24 Allergies Allergy/AdvReac Type Severity Reaction Status Date / Time Sulfa (Sulfonamide Allergy Unknown HIVES Verified 03/05/24 12:05 Antibiotics) Review of Systems 2 Review of Systems: Constitutional : No Fever, No Chills, pos fatigue ENT/Mouth : No Ear Pain, No Hoarseness, No sore throat Eyes: No Eye Pain, No Swelling, No Redness, No Foreign Body Cardiovascular : No Chest Pain, No SOB Respiratory : No Cough, No Dyspnea Gastrointestinal : No Nausea, No Vomiting, No Diarrhea, No abdominal Pain Genitourinary : No Dysuria, No Hematuria Musculoskeletal : positive joint pain, pos Myalgias, No Joint Swelling Skin : No Skin lacerations, No rash Neuro : No Weakness, No Numbness, No Loss of Consciousness, No Dizziness, No Headache All other systems reviewed and are negative [facility] Past Medical History Attestation statement: The following information was validated with the patient. Source: old records reviewed Social History Social History Patient Tobacco Use Status: Never used Tobacco Physical Exam ED Vital Signs: Vital Signs - 24 hr 03/05/24 12:01 03/05/24 14:03 03/05/24 16:00 Temperature 97.9 F Pulse Rate 87 86 78 Respiratory Rate 20 16 14 Blood Pressure 115/80 127/79 113/67 Pulse Oximetry 97 95 96 Oxygen Delivery Method Room Air Room Air Room Air 03/05/24 18:10 03/05/24 18:39 Temperature 98.0 F 98.0 F Pulse Rate 72 72 Respiratory Rate 14 14 Blood Pressure 115/63 115/63 Pulse Oximetry 98 98 Oxygen Delivery Method Room Air Room Air BMI result Body Mass Index 34.4 Appearance: Alert. Oriented X3. No acute distress. Eyes: Pupils equal, round and reactive to light. scleral icterus ENT: Pharynx no swelling, very mild tonsilar erythema, no exudates Neck: R side mild erythema but no ropy cord or mass felt, reports L sided neck pain but no mass/redness/ropy cord felt CVS: Normal heart rate and rhythm. Pulses normal. Respiratory: No respiratory distress. Breath sounds normal. Abdomen: Soft and nontender. Skin: Skin warm and dry. jaundiced Extremities: No lower extremity edema. Neuro: Oriented X 3. No motor deficit. No sensory deficit. Course Course Course Narrative: This is a Rapid Medical Examination (RME) performed by Clem Troncoso PA-C in triage. Full HPI, ROS, assessment and treatment plan per primary provider in the Main ED. 28 yo male here for eval. dx w/ mono 5 days ago at [facility] - states he was jaundiced at that time. here from walk in today with increased left shoulder/ left neck pain, cold sweats at night. admits to intermittent chest pain over the last few days. noted to be diaphoretic and jaundiced at walk in- sent here for further eval. admits to tick bite approximately 3 years ago. Was never tested for lyme and did not receive treatment. + diaphoretic. area of erythema noted to skin over left trapezius muscle. Plan: labs, ekg, tick/ lyme testing Reevaluation(s) Reevaluation #1: signed out to Dr. Douglas pending workup 430pm Medications Administered Discontinued Medications Generic Name Dose Route Start Last Admin Trade Name Paty PRN Reason Stop Dose Admin Hydromorphone HCl 0.5 mg 03/05/24 14:45 03/05/24 15:06 Hydromorphone Hcl 0.5 Mg/0.5 Ml Syringe IVPUSH 03/05/24 14:46 Not Given ONCE ONE Protocol Lactated Ringer's 1,000 mls @ 999 mls/hr 03/05/24 14:45 03/05/24 16:13 Lr IV 03/05/24 15:45 Infused .Q1H1M ONE Infusion Iohexol 65 ml 03/05/24 16:54 03/05/24 16:54 Iohexol 350 Mg/Ml 100 Ml Infus..Btl IV 03/05/24 16:55 65 ml ONCE ONE Administration Ketorolac Tromethamine 30 mg 03/05/24 18:16 03/05/24 18:30 Ketorolac Tromethamine 30 Mg/Ml Vial IVPUSH 03/05/24 18:17 30 mg ONCE ONE Administration Medical Decision Making Medical Decision Making MDM Narrative: 28 yo male no sig PMH here with recent mono now with increased jaundice but no abdominal pain he has fatigue, he has neck pain - fevers have stopped he is not taking tylenol at this time will repeat labs order US. Recent hepatitis panel was negative will consult GI. He has neck pain that doesn't feel externally terrible but there is a redness noted to SCM but no fluctuance or cord felt at this time will obtain CT scan for thrombophlebitis/pathology though clinically low suspicion. IVF ordered, he declines pain medications CT scan of the neck is negative for acute except for few lymph nodes [address] [address] [address] Scan Report Signed Patient: Harvey Diaz MR#: [id number] : 1995 Acct:[id number] Age/Sex: 28 / M ADM Date: 03/05/24 Loc: HO.ED Attending Dr: Ordering Physician: Monica Jang DO Date of Service: 03/05/24 Procedure(s): CT soft tissue neck w IV con Accession Number(s): [id number] cc: Monica Jang DO; Physician,Unknown ~ Report Number: [id number]: Total DLP = 839.00 mGy-cm CLINICAL HISTORY: R sided neck pain redness recent mono CT soft tissue neck with contrast Comparison: None Findings: Mild mucosal thickening within the paranasal sinuses. Mild prominence of adenoidal soft tissues. Unremarkable tonsils, hypopharynx and larynx. Normal epiglottis. Numerous lymph nodes within the neck soft tissues, measuring up to 1.2 cm in short axis dimension. Salivary glands are unremarkable. No sialoliths. Thyroid gland is unremarkable. Visualized lung apices are clear. No acute fractures. No soft tissue mass or fluid collection. IMPRESSION: 1. Mild lymphadenopathy within the neck. 2. Prominence of adenoidal soft tissues. This document has been electronically signed by: Brenda Cummings MD on 03/05/2024 17:58:24 Will discharge patient home patient's symptoms labs likely from infectious mononucleosis and reactive splenomegaly who advised to follow with collision center manager/PCP repeat the labs in 1 week Differential Diagnosis Differential Diagnoses: The differential diagnosis associated with the presentation includes thrombophlebitis, viral hepatitis Admission/Observation Consideration of admission/observation: Escalation of care including admission/observation considered Consult Healthcare Provider Management of the patient was discussed with: [employer] Quality Assurance Engineer Dr. Finley discussed LFTs and US - repeat LFTs in 48 hours Lab Data MDM Lab Attestation statement: I reviewed the patient's lab results. 03/05/24 12:24 03/05/24 12:24 Labs: Lab Results 03/05/24 Range/Units 12:24 WBC 15.8 H (4.8-10.8) X10*3/uL RBC 5.05 (4.60-5.80) X10*6/uL Hgb 15.3 (14.0-18.0) g/dl Hct 44.5 (42.0-52.0) % MCV 88.1 (80.0-98.0) fL MCH 30.3 (27.0-33.0) pg MCHC 34.4 (31.0-36.0) g/dl RDW 14.3 (11.0-16.0) % Plt Count TNP MPV TNP Immature Gran % (Auto) Cancelled Neut % (Auto) Cancelled Lymph % (Auto) Cancelled [place] % (Auto) Cancelled Eos % (Auto) Cancelled Baso % (Auto) Cancelled Lymph # (Auto) Cancelled [place] # (Auto) Cancelled Eos # (Auto) Cancelled Baso # (Auto) Cancelled Abs Immat Gran (auto) Cancelled Absolute Neuts (auto) Cancelled Absolute Nucleated RBC 0.000 (0.0-0.012) X10*3/uL Nucleated RBC % (auto) 0.0 (0.0-0.2) /100WBC Neutrophils % (Manual) 16 L (45-73) % Band Neutrophils % 0 L (3-5) % Lymphocytes % (Manual) 34 (20-40) % Atypical Lymphs % (Man) 43 H (0-6) % Monocytes % (Manual) 7 (2-11) % Abs Neuts (Manual) 2.5 (2.0-8.3) X10*3/uL Lymphocytes # (Manual) 5.4 H (1.2-4.9) X10*3/uL Atyp Lymphs # (Manual) 6.8 x10*3/uL Monocytes # (Manual) 1.1 (0.1-1.2) X10*3/uL Platelet Estimate TNP Plt Morphology Comment TNP RBC Morphology NORMAL Sodium 138 (135-145) mmol/L Potassium 4.2 (3.3-5.1) mmol/L Chloride 106 (96-108) mmol/L Carbon Dioxide 25 (22-29) mmol/L Anion Gap 11 L (12-20) BUN 8 L (9-16) mg/dL Creatinine 0.86 (0.5-1.4) mg/dL Estim Creat Clear Calc 155.0 Estimated GFR > 60 Random Glucose 122 H (60-115) mg/dL Calcium 9.0 (8.4-10.2) mg/dL Magnesium 2.3 (1.6-2.6) mg/dL Total Bilirubin 4.6 H (0.0-1.0) mg/dL Direct Bilirubin 3.4 H (0.0-0.5) mg/dL AST 203 H (5-37) U/L ALT 511 H (0-40) U/L Alkaline Phosphatase 385 H (39-117) U/L Total Creatine Kinase 11 L (38-174) U/L Troponin I High Sens < 2.7 (<3.5-35.0) ng/L Total Protein 7.5 (6.5-8.0) g/dL Albumin 3.8 (3.5-5.0) g/dL Lipase 41 (8-78) U/L Independent Interpretation I performed an independent interpretation of an: EKG, Ultrasound (no obstructive pathology ) and CT Scan Interpretation: Rate: 80 Rhythm: NSR [place]: normal Normal P waves. Normal CARINE. Normal QRS complex. ST T wave : inverted t waves III, no PERRY qTC: 419 prior studies: no acute ischemia The study has been interpreted contemporaneously by me. . Radiology Impression Discussion of test interpretation with radiology: I have reviewed the radiologist's reading. Radiologist Impression: [address] [address] [address] Scan Report Signed Patient: Harvey Diaz MR#: [id number] : 1995 Acct:[id number] Age/Sex: 28 / M ADM Date: 03/05/24 Loc: .ED Attending Dr: Ordering Physician: Monica Jang DO Date of Service: 03/05/24 Procedure(s): CT soft tissue neck w IV con Accession Number(s): [id number] cc: Monica Jang DO; Physician,Unknown ~ Report Number: [id number]: Total DLP = 839.00 mGy-cm CLINICAL HISTORY: R sided neck pain redness recent mono CT soft tissue neck with contrast Comparison: None Findings: Mild mucosal thickening within the paranasal sinuses. Mild prominence of adenoidal soft tissues. Unremarkable tonsils, hypopharynx and larynx. Normal epiglottis. Numerous lymph nodes within the neck soft tissues, measuring up to 1.2 cm in short axis dimension. Salivary glands are unremarkable. No sialoliths. Thyroid gland is unremarkable. Visualized lung apices are clear. No acute fractures. No soft tissue mass or fluid collection. IMPRESSION: 1. Mild lymphadenopathy within the neck. 2. Prominence of adenoidal soft tissues. This document has been electronically signed by: Brenda Cummings MD on 03/05/2024 17:58:24 External Record Review External record reviewed: Outpatient record and Prior outpatient labs Discharge Plan Discharge Clinical Impression: Infectious mononucleosis hepatitis Patient Disposition: Home, Self-Care Instructions: Mononucleosis (ED) Additional Instructions: Your abnormal blood opiates likely from infectious mononucleosis involving the liver and spleen anticipate to get better with time Need to follow up with PCP/collision center manager for future labs and workup Oxycodone for severe pain Prescriptions: New oxycodone 5 mg tablet 5 mg PO Q6H PRN (Reason: pain) Qty: 20 0RF Rx Instructions: Partial Fill upon patient request. No Action ondansetron 4 mg tablet,disintegrating 4 mg PO ONCE PRN (Reason: nausea and vomiting) Qty: 30 0RF Referrals: Georgia King MD [Physician] - 3 days Stand Alone Forms: Work/School Release Interventions: ED Discharge Assessment Last Done: 03/05/24 18:39 Discharge Date/Time: 03/05/24 18:40 Print Language: Stateless
--- NOTE | 2024-03-05 12:08 | ECG_ITS ---
Test Reason : chest pain Blood Pressure : / mmHG Vent. Rate : 080 BPM Atrial Rate : 080 BPM P-R Int : 134 ms QRS Dur : 092 ms QT Int : 364 ms P-R-T Axes : 040 026 015 degrees QTc Int : 419 ms Normal sinus rhythm Normal ECG When compared with ECG of 07-SEP-2011 23:46, No significant change was found Referred By: Corin Troncoso Electronically Signed By:Joseph Henson
[2024-03-05 12:34] LABS: Hemoglobin 15.3 g/dl (14.0-18.0); PLT CLUMP 1
[2024-03-05 12:36] LABS: Hematocrit 44.5 % (42.0-52.0); Mean Corpuscular HGB Conc 34.4 g/dl (31.0-36.0); Mean Corpuscular Hemoglobin 30.3 pg (27.0-33.0); Mean Corpuscular Volume 88.1 fL (80.0-98.0); Red Blood Count 5.05 X10*6/uL (4.60-5.80); Red Cell Distribution Width 14.3 % (11.0-16.0)
[2024-03-05 12:54] LABS: Alanine Aminotransferase 511 U/L (0-40); Albumin Level 3.8 g/dL (3.5-5.0); Alkaline Phosphatase 385 U/L (39-117); Anion Gap 11 (12-20); Aspartate Amino Transferase 203 U/L (5-37); Bilirubin Total 4.6 mg/dL (0.0-1.0); Blood Urea Nitrogen 8 mg/dL (9-16); Carbon Dioxide 25 mmol/L (22-29); Chloride 106 mmol/L (96-108); Estimated Glomerular Filt Rate > 60; Glucose Random 122 mg/dL (60-115); Lipase 41 U/L (8-78); Magnesium 2.3 mg/dL (1.6-2.6); Potassium 4.2 mmol/L (3.3-5.1); Sodium 138 mmol/L (135-145); Total Protein 7.5 g/dL (6.5-8.0)
[2024-03-05 13:04] LABS: Troponin-I High Sensitivity < 2.7 ng/L (<3.5-35.0)
[2024-03-05 13:06] LABS: WBC ABN SCTR FOR CBC 1; White Blood Count 15.8 X10*3/uL (4.8-10.8)
[2024-03-05 13:10] LABS: Atypical Lymph Absolute Manual 6.8 x10*3/uL; Atypical Lymphs Percent Manual 43 % (0-6); Band Neutrophils Percent 0 % (3-5); Lymphocytes Absolute Manual 5.4 X10*3/uL (1.2-4.9); Lymphocytes Percent Manual 34 % (20-40); Monocytes Absolute Manual 1.1 X10*3/uL (0.1-1.2); Monocytes Percent Manual 7 % (2-11); Neutrophils Absolute Manual 2.5 X10*3/uL (2.0-8.3); Neutrophils Percent Manual 16 % (45-73)
[2024-03-05 13:11] LABS: RBC Morphology NORMAL
[2024-03-05 13:34] LABS: Bilirubin Direct 3.4 mg/dL (0.0-0.5)
[2024-03-05 14:03] VITALS: BP 127/79; PULSE 86; RESP 16; O2SAT 95
[2024-03-05] MEDS: Lactated Ringers 1,000 ML 999 ML IV (15:00)
[2024-03-05 16:00] VITALS: BP 113/67; PULSE 78; RESP 14; O2SAT 96
[2024-03-05] MEDS: iohexoL 350 MG/ML 100 ML INFUS..BTL 65 ML IV (16:54)
[2024-03-05 18:10] VITALS: BP 115/63; PULSE 72; RESP 14; TEMP 36.7; O2SAT 98
[2024-03-05] MEDS: Ketorolac Tromethamine 30 MG/ML VIAL IVPUSH (18:30)
[2024-03-05 18:39] VITALS: BP 115/63; PULSE 72; RESP 14; TEMP 36.7; O2SAT 98
[2024-03-07 21:08] LABS: A. Phagocytphilium DNA,RT-PCR NOT DETECTED (NOT DETECTED); Babesia Microti DNA, RT-PCR NOT DETECTED (NOT DETECTED); Borrelia Miyamotoi,DNA RT-PCR NOT DETECTED (NOT DETECTED); E.Chaffeensis DNA RT-PCR NOT DETECTED (NOT DETECTED); Lyme(Borrelia ssp)DNA RT-PCR NOT DETECTED (NOT DETECTED)
[2024-03-07 22:13] LABS: Lyme Abs Screen <0.90 index
== END 2024-03-05 18:40 | disposition home or self-care (01) ==
PROVIDERS: Emergency Medicine; Physician Assistant Medical; Emergency Provider Internal Medicine
DX: B27.89 Other infectious mononucleosis with other complication (principal); K75.9 Inflammatory liver disease, unspecified; R10.11 Right upper quadrant pain; R07.9 Chest pain, unspecified
CPT/HCPCS: 36415; 70491; 71045; 76705; 80053; 82248; 82550; 83690; 83735; 84484; 85007; 85025; 85027; 86617; 86618; 87468; 87469; 87478; 87484; 87798; 93005; 96361; 96374; 99284; 99285; J1885; J7120; Q9967

== ENCOUNTER → 2024-03-05 12:08 | Outpatient (BNV) | payer BC, SELFPAY | PROVIDERS: Emergency Provider Internal Medicine; Visit Provider Internal Medicine Cardiovascular Disease | DX: R07.9 Chest pain, unspecified (principal) | CPT/HCPCS: 93010 ==

== ENCOUNTER → 2024-03-05 12:42 | Outpatient (BNV) | payer BC, SELFPAY | PROVIDERS: Emergency Provider Emergency Medicine; Visit Provider Radiology Diagnostic Radiology | DX: R10.11 Right upper quadrant pain (principal); R07.9 Chest pain, unspecified; M54.2 Cervicalgia | CPT/HCPCS: 70491; 71045; 76705 ==

== ENCOUNTER 2024-05-12 07:48 | Outpatient (AMB) | payer BC, SELFPAY ==
--- NOTE | 2024-05-12 07:53 | A.OFFPC_ITS ---
Vital Signs 05/12/24 07:56 Height 5 ft 10 in Weight 247 lb BMI 35.4 BP 122/86 Blood Pressure Location Lt brachial Position Sitting Pulse 83 Pulse Source Pulse Oximeter Pulse Oximetry (%) 98 Oxygen Delivery Method Room Air Intake Visit Reasons: establish care Intake Note: Patient here to establish care Physical Education Department Chair Required: No Accompanied by: Self / Same As Patient Allergies Sulfa (Sulfonamide Antibiotics) Allergy (Unknown, Verified 05/12/24 08:06) HIVES Medication List - Last Reconciled 05/12/24 by José Biggs PA-C No Known Home Meds Tobacco use date assessed: 05/12/24 Dental Screening Dental Screen Date: 05/12/24 Did you have a dental visit in the last 12 months?: No Did you have a dental problem in the last 6 months where you did not have access to dental care?: No Was dental information given to patient?: Patient has dentist HPI establish care HPI Details Patient is a 28-year-old male here today for an establish care visit. Recently seen at urgent care and ER acute viral illness. Was found to have mononucleosis with hepatitis. CT of neck showed lymphadenopathy abdominal imaging showed mild hepatomegaly. He reports he continues to have bilateral shoulder pain ever since being diagnosed with mononucleosis. It has been gradually getting better though continues to have difficulty holding his arms up above his head . PLAN: Will send for x-rays of bilateral shoulders. Vaccines: Up-to-date with tetanus and COVID vaccines, UTD with flu PFSH Surgical History History of knee surgery History of tonsillectomy Family History (Updated 05/12/24 @ 08:11 by José Biggs PA-C) Father COPD (chronic obstructive pulmonary disease) Mother Lung cancer Social History (Updated 05/12/24 @ 08:11 by José Biggs PA-C) Housing: House Alcohol intake: current Alcohol intake frequency: a few times a month Alcohol type: other Patient Tobacco Use Status: Never used Tobacco e-Cigarette/Vaping Use: Never Used Second Hand Smoke Exposure: No service: No Current occupational status: employed Current occupation: [employer] Current occupational exposures/hazards: No Cognitive needs: No Hearing needs: No Vision needs: No Questionnaire PHQ-9 Over the last 2 weeks, how often have you been bothered by any of the following problems? 1. Little interest or pleasure in doing things: not at all 2. Feeling down, depressed, or hopeless: not at all 3. Trouble falling or staying asleep, or sleeping too much: not at all 4. Feeling tired or having little energy: not at all 5. Poor appetite or overeating: not at all 6. Feeling bad about yourself - or that you are a failure or have let yourself or your family down: not at all 7. Trouble concentrating on things, such as reading the newspaper or watching television: not at all 8. Moving or speaking so slowly that other people could have noticed. Or the opposite - being so fidgety or restless that you have been moving around a lot more than usual: not at all 9. Thoughts that you would be better off or of hurting yourself in some way: not at all Total score: 0 Depression Screening Interpretation: Negative Depression Screening Done: Yes 89767 - PHQ-9 Billing: Yes Source: Developed by Drs. Bill Azar, Yesica Greer, David Marroquin and colleagues, with an educational emery from [employer]. Thrive Questionnaire Date Thrive assessed: 05/10/24 I am a: Patient What is your living situation today?: I have a steady place to live Within the past 12 months, did the food you bought not last and you didn't have the money to get more?: Never true Within the past 12 months, did you worry whether your food would run out before you got money to buy more?: Never true Do you have trouble paying for medicines?: No Do you have trouble getting transportation to medical appointments?: No Do you have trouble paying your heating and electricity bill?: No Do you have trouble taking care of your child, family member or friend?: No Do you have trouble with day-to-day activities such as bathing, preparing meals, shopping, managing finances, etc.?: No Are you currently unemployed and looking for a job?: No Are you interested in more education?: No Please select the resources that you would like help with: None Currently or been in a relationship where the following occur: No concerns reported THRIVE Score: 0 AUDIT C Alcohol Use Questionnaire (AUDIT-C) 1. How often do you have a drink containing alcohol?: 2-4 times a month 2. How many drinks containing alcohol do you have on a typical day when you are drinking?: 3 or 4 3. How often do you have six or more drinks on one occasion?: Less than monthly Total Score: 4 RALPH-7 AMB Questionnaire RALPH-7 Date RALPH - 7 assessed: 05/12/24 Feeling nervous, anxious, or on edge: 0 = Not at all Not being able to stop or control worryin = Not at all Worrying too much about different things: 0 = Not at all Trouble relaxin = Not at all Being so restless that it is hard to sit still: 0 = Not at all Becoming easily annoyed or irritable: 0 = Not at all Feeling afraid as if something awful might happen: 0 = Not at all Total RALPH-7 score (0-4 normal; 5-9 mild; 10-14 moderate; 15-21 severe): 0 Source: Developed by Drs. Bill Azar, Yesica Greer, David Marroquin and colleagues, with an educational emery from [employer]. RALPH-7 Assessment Billing RALPH-7 Assessment Tool: RALPH-7 Assessment 23711 Review of Systems Const Denies headache(s) Eyes Denies loss of vision ENT Denies vertigo, Denies dizziness, Denies headache(s) and Denies sore throat Card Denies chest pain, Denies leg edema and Denies lightheadedness Resp Denies cough, Denies hemoptysis and Denies wheezing GI Denies abdominal pain, Denies melena, Denies constipation, Denies diarrhea and Denies vomiting Denies dysuria, Denies urinary frequency and Denies urinary urgency Musc Denies arthralgias, Denies joint swelling, Denies numbness and Denies tingling Neuro Denies Abnormal speech present, Denies behavioral changes, Denies vertigo, Denies dizziness, Denies headache(s), Denies loss of vision, Denies memory loss, Denies numbness and Denies tingling Psych Denies anxiety, Denies behavioral changes, Denies depression, Denies memory loss and Denies panic attacks Andre/Lymph Denies easy bleeding and Denies easy bruising Aller/Immun Denies wheezing Physical exam (Primary Care) Vital Signs: Last Vital Signs Pulse 83 03/06/25 07:56 BP 122/86 05/12/24 07:56 Pulse Ox 98 05/12/24 07:56 Oxygen Delivery Method Room Air 05/12/24 07:56 BMI result Body Mass Index 35.4 Tobacco/Smoking Status: Tobacco use Status Tobacco use date assessed 05/12/24 05/12/24 08:02 Patient Tobacco Use Status Never used Tobacco 05/12/24 08:11 e-Cigarette/Vaping Use Never Used 05/12/24 08:11 PHQ-9: PHQ-9 Score PHQ-9: Total score 0 05/12/24 08:07 Depression Screening Interpretation: Negative Thrive Assessment: Date of Thrive Assessment Date Thrive assessed 05/10/24 05/12/24 08:02 Currently or been in a relationship where the following occur: No concerns reported Const General: healthy appearing, no acute distress, alert and awake Nutritional Appearance: well nourished Orientation/consciousness: oriented to person, oriented to place and oriented to time HENMT Ears: TM's normal bilaterally General nose exam: Normal nasal mucous membranes and turbinates present Eyes Conjunctivae: conjunctivae normal Sclerae: sclerae normal Pupils: Equal, round and reactive pupils present Neck Neck: Yes no lymphadenopathy and Yes no JVD Thyroid: Thyroid normal Carotids: no bruits Resp Effort & Inspection: normal respiratory effort and not tachypneic Auscultation: no crackles, no rales, no rhonchi and no wheezes Cardio Rate: regular rate Rhythm: regular rhythm Heart sounds: no murmurs and normal S1 and S2 GI Palpation (GI): Soft to palpation, nontender, no hepatomegaly and no splenomegaly Auscultation: normal bowel sounds Skin General skin exam: no rashes or lesions noted and dry skin Neuro General: oriented to person, oriented to place and oriented to time Cranial nerves: Yes Equal, round and reactive pupils present Speech: No Abnormal speech present Gait exam (Neuro): Normal gait present Motor exam (neuro): no tremor noted Extrem Other: BILATERAL SHOULDERS WITH SOME NOTABLE FOR DECREASED RANGE OF MOTION. Right upper extremity: full ROM Left upper extremity: full ROM Right lower extremity: full ROM; no edema Left lower extremity: full ROM; no edema Psych Mental Status: mental status grossly normal Speech and movement: Normal speech and movement present Affect: normal affect Attitude: cooperative Thought process: Normal thought process present Coding Level of Care Code New Pt Level 4 (63253) Diagnoses Tendinitis of both shoulders M77.8 Screening for diabetes mellitus (DM) Z13.1 Mononucleosis syndrome B27.90 Class 1 obesity E66.811 Additional Codes PHQ-9 - 64626 - PHQ-9 Billing: Yes ([id number]) RALPH-7 Assessment Billing - RALPH-7 Assessment Tool: RALPH-7 Assessment 24785 ([id number]) Assessment & Plan Assessment & Plan (1) Tendinitis of both shoulders: Code(s): M77.8 - Other enthesopathies, not elsewhere classified Category: Medical Plan: Patient reports since having mononucleosis he has noted but this shoulders being painful and decreased range of motion. He attributes this to his recent bout with mononucleosis. He reports some improvement in his pain and range of motion. Does take anti-inflammatory from time to time. We did discuss possibly doing physical therapy to help him with his range of motion and pain reduction though he like to hold off due to (2) Screening for diabetes mellitus (DM): Code(s): Z13.1 - Encounter for screening for diabetes mellitus Category: Medical Plan: As per HPI (3) Mononucleosis syndrome: Code(s): B27.90 - Infectious mononucleosis, unspecified without complication Category: Medical Plan: Has been clinically getting better and having more energy. will recheck patient's liver enzymes (4) Class 1 obesity: Code(s): E66.811 - Obesity, class 1 Category: Medical Plan: Patient does understand his BMI is over 30 will work on being more physically active and adapting to better eating habits to reduce his weight Orders: Orders XR shoulder RT min 2V Today M77.8 - Other enthesopathies, not elsewhere classified Comprehensive Mobile. Panel Fast Today Z13.1 - Encounter for screening for diabetes mellitus Complete Blood Count no Diff Today B27.90 - Infectious mononucleosis, unspecified without complication XR shoulder LT min 2V Today M77.8 - Other enthesopathies, not elsewhere class ified Medications: Discontinued ondansetron Discontinued Reason: Patient Completed Course 4 mg PO ONCE PRN 30 tabs 0RF nausea and vomiting oxycodone Partial Fill upon patient request. Discontinued Reason: Patient Completed Course 5 mg PO Q6H PRN 20 tabs 0RF pain
[2024-05-12 07:56] VITALS: BP 122/86; PULSE 83; O2SAT 98; BMI 35.4
== END 2024-05-12 08:27 | disposition home or self-care (01) ==
PROVIDERS: Visit Provider Physician Assistant
DX: M77.8 Other enthesopathies, not elsewhere classified (principal); E66.811 Obesity, class 1; Z68.35 Body mass index [BMI] 35.0-35.9, adult; Z13.1 Encounter for screening for diabetes mellitus; B27.90 Infectious mononucleosis, unspecified without complication

== ENCOUNTER → 2024-05-12 07:48 | Outpatient (BNVA) | payer BC, SELFPAY | PROVIDERS: Visit Provider Physician Assistant | DX: M77.8 Other enthesopathies, not elsewhere classified (principal); B27.90 Infectious mononucleosis, unspecified without complication; E66.811 Obesity, class 1; Z68.35 Body mass index [BMI] 35.0-35.9, adult | CPT/HCPCS: 96127 ==

== ENCOUNTER 2024-06-09 10:44 | Outpatient (AMB) | payer BC, SELFPAY ==
--- NOTE | 2024-06-09 10:47 | MHC.OFFVIS ---
Intake Visit Reasons: CT Findings of Kidney Intake Note: New patient presents today for initial visit for CT findings of kidney Urology Medication:none Blood Thinner:none Antibiotic Allergies:Sulfa Allergies Sulfa (Sulfonamide Antibiotics) Allergy (Unknown, Verified 06/09/24 10:51) HIVES LUCA Comments Details: History of Present Illness The patient is a 29-year-old male presenting with concerns over possible nephrolithiasis following past diagnostics related to infectious mononucleosis. In February, a CT scan with contrast showed potential small kidney stones, but these findings were inconclusive due to contrast presence. An abdominal ultrasound shortly thereafter examined only the liver. No current renal pain, hematuria, or proteinuria is reported, and urinalysis today is unremarkable. Financial constraints have also been mentioned regarding further testing. Urinary Symptoms Review - No blood in urine - No protein in urine - No signs of urinary infection - Urine was previously dark during infectious mononucleosis episode - No pain in the renal area currently Results - CT scan with contrast (February): Possible small kidney stones, unable to definitively detect due to contrast - Recent urinalysis: No blood, no protein, no infection Discussion Notes We discussed the possibility of nephrolithiasis and the impracticality of certain results due to previous CT contrast issues. A non-contrast CT scan or a kidney ultrasound was considered for further assessment of stones, with emphasis on minimizing unnecessary interventions due to financial concerns. Lifestyle modifications for kidney health were discussed, focusing on hydration and diet alterations to prevent stone formation, such as adding lemon to water for citrate benefits. We planned to conduct a follow-up ultrasound in nine months to monitor the kidney health without immediate intervention unless symptomatic. [facility] Surgical History History of knee surgery History of tonsillectomy Family History Father COPD (chronic obstructive pulmonary disease) Mother Lung cancer Social History Housing: House Alcohol intake: current Alcohol intake frequency: a few times a month Alcohol type: other Patient Tobacco Use Status: Never used Tobacco e-Cigarette/Vaping Use: Never Used Second Hand Smoke Exposure: No service: No Current occupational status: employed Current occupation: [employer] Current occupational exposures/hazards: No Cognitive needs: No Hearing needs: No Vision needs: No Review of Systems Const All systems reviewed & are unremarkable except as noted in HPI and below Reports no additional complaints Eyes Reports no additional complaints ENT Reports no additional complaints Card Reports no additional complaints Resp Reports no additional complaints GI Reports no additional complaints Reports as per HPI Musc Reports no additional complaints Skin/Breast Reports system reviewed and no additional complaints, except as documented Neuro Reports no additional complaints Psych Reports no additional complaints Endo Reports no additional complaints Andre/Lymph Reports no additional complaints Aller/Immun Reports no additional complaints Physical Exam Const General: healthy appearing, no acute distress and well developed Orientation/consciousness: patient oriented x3 HEENT Head: Yes normocephalic and Yes atraumatic Eyes Conjunctivae: conjunctivae normal Neck Neck: Yes normal visual inspection Chest Chest palpation & inspection: normal inspection of the chest Resp Effort & Inspection: normal respiratory effort Cardio Rate: regular rate GI Inspection: Yes normal to inspection Neuro General: patient oriented x3 Psych Appearance: grossly normal Affect: normal affect Results AMB Urinalysis, Automated UA Leukoctes 0 Yunior/uL Last Edit by Shanna Vela on 06/09/24 14:02 UA Nitrite Negative Last Edit by Shanna Vela on 06/09/24 14:02 UA Urobilinogen 1 mg/dL Last Edit by Shanna Vela on 06/09/24 14:02 UA Protein 15 mg/dL Last Edit by Shanna Vela on 06/09/24 14:02 UA pH 6.5 Last Edit by Shanna Vela on 06/09/24 14:02 UA Blood 0 Xander/uL Last Edit by Shanna Vela on 06/09/24 14:02 UA Specific Clark 1.015 Last Edit by Shanna Vela on 06/09/24 14:02 UA Ketone Negative Last Edit by Shanna Vela on 06/09/24 14:02 UA Bilirubin 0 mg/dL Last Edit by Shanna Vela on 06/09/24 14:02 UA Glucose 0 mg/dL Last Edit by Shanna Vela on 06/09/24 14:02 Assessment & Plan Assessment & Plan Plan Plan A kidney ultrasound is scheduled for nine months from now. The patient was advised on lifestyle changes, including reduced oxalate and salt intake, balanced protein consumption, and increased hydration with citrus-enhanced fluids for stone prevention. We will monitor the situation carefully, reassessing if symptoms arise or if ultrasound findings necessitate earlier intervention. Patient Instructions - Drink 48 to 64 ounces of fluids daily, focusing on water. - Consider adding lemon to water for citrate benefits. - Reduce salt in your diet and balance intake of proteins with more beans and fish instead of red meat. - Be vigilant of any new symptoms such as blood in urine or significant pain, and report them promptly. - Return for follow-up in nine months for a kidney ultrasound. - Monitor for any signs of pain near the kidney region or other unusual symptoms. - Avoid excessive intake of oxalate-rich foods such as spinach, nuts, and chocolate. Orders: Orders AMB Urinalysis Automated Today Z13.9 - Encounter for screening, unspecified Patient Instructions: The patient had an opportunity to ask questions regarding treatment plan. The patient expressed understanding and agreement with the above treatment plan. The patient is aware they should contact our office by phone for worsening of their current condition or the appearance of new symptoms. Compliance is encouraged with any medications and followup testing that is ordered. It is a privilege to be allowed the opportunity to participate in the urologic care of your patient. If you have any questions or concerns regarding treatment for the above conditions please do not hesitate to contact me. The office telephone contact is [phone]. This note is constructed in part using voice recognition software. While every effort has been made to ensure accuracy dairy nutrition specialist errors may have been included. Yours sincerely, Golden Echols MD Scribe Plan - Not visible on output: Patient was informed and verbally consented to the use of an ambient scribe for clinic note documentation during this visit. Coding Level of Care Code New Pt Level 3 (14541)
== END 2024-06-09 11:38 | disposition home or self-care (01) ==
LOC: HO.HUSH 10:45
PROVIDERS: Visit Provider Urology
DX: Z13.9 Encounter for screening, unspecified (principal)

== ENCOUNTER → 2024-06-09 10:44 | Outpatient (BNVA) | payer BC, SELFPAY | PROVIDERS: Visit Provider Urology | DX: N28.89 Other specified disorders of kidney and ureter (principal) | CPT/HCPCS: 81003 ==

== ENCOUNTER 2024-11-22 07:48 | Outpatient (REF) | payer BC, SELFPAY ==
[2024-11-22 09:26] LABS: Hematocrit 43.5 % (42.0-52.0); Hemoglobin 15.1 g/dl (14.0-18.0); Mean Corpuscular HGB Conc 34.7 g/dl (31.0-36.0); Mean Corpuscular Hemoglobin 30.8 pg (27.0-33.0); Mean Corpuscular Volume 88.6 fL (80.0-98.0); NRBC Abs Auto 0.000 X10*3/uL (0.0-0.012); NRBC Pct Auto 0.0 /100WBC (0.0-0.2); Platelet Count 279 X10*3/uL (160-400); Red Blood Count 4.91 X10*6/uL (4.60-5.80); White Blood Count 5.8 X10*3/uL (4.8-10.8)
[2024-11-22 10:00] LABS: Alanine Aminotransferase 47 U/L (0-40); Albumin Level 5.0 g/dL (3.5-5.0); Alkaline Phosphatase 57 U/L (39-117); Anion Gap 12 (12-20); Aspartate Amino Transferase 33 U/L (5-37); Blood Urea Nitrogen 18 mg/dL (9-16); Calcium 9.2 mg/dL (8.4-10.2); Carbon Dioxide 27 mmol/L (22-29); Chloride 107 mmol/L (96-108); Estimated Glomerular Filt Rate > 60; Potassium 4.5 mmol/L (3.3-5.1); Sodium 141 mmol/L (135-145); Total Protein 7.4 g/dL (6.5-8.0)
== END 2024-11-22 07:49 | disposition home or self-care (01) ==
LOC: HO.LAB 07:48
PROVIDERS: PCP Physician Assistant; Visit Provider Physician Assistant
DX: Z00.00 Encounter for general adult medical examination without abnormal findings (principal); Z30.09 Encounter for other general counseling and advice on contraception; M67.911 Unspecified disorder of synovium and tendon, right shoulder; E66.811 Obesity, class 1; Z68.35 Body mass index [BMI] 35.0-35.9, adult
CPT/HCPCS: 36415; 80053; 85027; 96127

== ENCOUNTER 2024-11-22 07:48 | Outpatient (AMB) | payer BC, SELFPAY ==
[2024-11-22 08:01] VITALS: BP 112/80; PULSE 88; O2SAT 97; BMI 35.5
--- NOTE | 2024-11-22 08:01 | MHC.PC.OV ---
Vital Signs 11/22/24 08:01 Height 5 ft 10 in Weight 247 lb 4 oz BMI 35.5 BP 112/80 Blood Pressure Location Lt brachial Position Sitting Pulse 88 Pulse Source Pulse Oximeter Pulse Oximetry (%) 97 Oxygen Delivery Method Room Air Intake Visit Reasons: Annual Exam Allergies Sulfa (Sulfonamide Antibiotics) Allergy (Unknown, Verified 11/22/24 08:07) HIVES Medication List - Last Reconciled 11/22/24 by José Biggs PA-C No Known Home Meds Tobacco use date assessed: 11/22/24 Dental Screening Dental Screen Date: 11/22/24 Did you have a dental visit in the last 12 months?: No Did you have a dental problem in the last 6 months where you did not have access to dental care?: No Was dental information given to patient?: Patient has dentist HPI Annual Exam HPI Details Patient is a 29-year-old male here today for routine annual physical Patient has a past medical history of obesity and history of mononucleosis. Right shoulder tendinopathy: The patient reports right shoulder pain that began approximately eight months ago, coinciding with a bout of mononucleosis. The pain is described as sharp and occurs during activities such as lifting or reaching overhead, impacting his ability to perform tasks at work and home. He notes a visible asymmetry between his shoulders, with the right shoulder appearing lower than the left. The patient has not sustained any recent injuries but experiences tightness and discomfort when reaching behind his back. He has attempted self-care measures such as resistance band exercises and foam rolling without significant improvement. .. Class 2 obesity: Patient does understand his BMI is over 35 and will work on being more physically active and adapting to better eating habits to reduce his weight .. Balanitis: Patient does have a partial circumcision, he does report skin irritation over his glans penis, did use oral fluconazole that did temporarily relieve his symptoms. He is asking for another script of oral and additional topical antifungal to help clear infection. Vaccines: Up-to-date with tetanus and COVID vaccines, Considering flu vaccine [facility] Surgical History History of knee surgery History of tonsillectomy Family History Father COPD (chronic obstructive pulmonary disease) Mother Lung cancer Social History (Updated 11/22/24 @ 08:11 by José Biggs PA-C) Housing: House Alcohol intake: current Alcohol intake frequency: a few times a month Alcohol type: beer and other Patient Tobacco Use Status: Never used Tobacco e-Cigarette/Vaping Use: Never Used Second Hand Smoke Exposure: No service: No Current occupational status: employed Current occupation: [employer] Current occupational exposures/hazards: No Cognitive needs: No Hearing needs: No Vision needs: No Questionnaire PHQ-9 Over the last 2 weeks, how often have you been bothered by any of the following problems? 1. Little interest or pleasure in doing things: not at all 2. Feeling down, depressed, or hopeless: not at all 3. Trouble falling or staying asleep, or sleeping too much: not at all 4. Feeling tired or having little energy: not at all 5. Poor appetite or overeating: not at all 6. Feeling bad about yourself - or that you are a failure or have let yourself or your family down: not at all 7. Trouble concentrating on things, such as reading the newspaper or watching television: not at all 8. Moving or speaking so slowly that other people could have noticed. Or the opposite - being so fidgety or restless that you have been moving around a lot more than usual: not at all 9. Thoughts that you would be better off or of hurting yourself in some way: not at all Total score: 0 Depression Screening Interpretation: Negative Depression Screening Done: Yes 41596 - PHQ-9 Billing: Yes Source: Developed by Drs. Bill Azar, Yesica Greer, David Marroquin and colleagues, with an educational emery from [employer]. Thrive Questionnaire Date Thrive assessed: 05/10/24 I am a: Patient What is your living situation today?: I have a steady place to live Within the past 12 months, did the food you bought not last and you didn't have the money to get more?: Never true Within the past 12 months, did you worry whether your food would run out before you got money to buy more?: Never true Do you have trouble paying for medicines?: No Do you have trouble getting transportation to medical appointments?: No Do you have trouble paying your heating and electricity bill?: No Do you have trouble taking care of your child, family member or friend?: No Do you have trouble with day-to-day activities such as bathing, preparing meals, shopping, managing finances, etc.?: No Are you currently unemployed and looking for a job?: No Are you interested in more education?: No Please select the resources that you would like help with: None Currently or been in a relationship where the following occur: No concerns reported THRIVE Score: 0 AUDIT C Alcohol Use Questionnaire (AUDIT-C) 1. How often do you have a drink containing alcohol?: 2-4 times a month 2. How many drinks containing alcohol do you have on a typical day when you are drinking?: 3 or 4 3. How often do you have six or more drinks on one occasion?: Less than monthly Total Score: 4 RALPH-7 AMB Questionnaire RALPH-7 Date RALPH - 7 assessed: 05/12/24 Feeling nervous, anxious, or on edge: 0 = Not at all Not being able to stop or control worryin = Not at all Worrying too much about different things: 0 = Not at all Trouble relaxin = Not at all Being so restless that it is hard to sit still: 0 = Not at all Becoming easily annoyed or irritable: 0 = Not at all Feeling afraid as if something awful might happen: 0 = Not at all Total RALPH-7 score (0-4 normal; 5-9 mild; 10-14 moderate; 15-21 severe): 0 Source: Developed by Drs. Bill Azar, Yesica Greer, David Marroquin and colleagues, with an educational emery from [employer]. Review of Systems Const Denies body aches, Denies chills, Denies excessive sweating, Denies fatigue, Denies fever(s) and Denies headache(s) Eyes Denies blurry vision ENT Denies dysphagia, Denies vertigo, Denies dizziness, Denies headache(s), Denies hearing loss and Denies tinnitus Card Denies chest pain, Denies chest pain with activity, Denies syncope, Denies irregular heart rhythm and Denies dyspnea Resp Denies chest congestion, Denies cough, Denies hemoptysis, Denies dyspnea and Denies wheezing GI Denies abdominal pain, Denies melena, Denies hematochezia, Denies coffee ground emesis, Denies dysphagia, Denies diarrhea, Denies nausea and Denies vomiting Denies difficulty urinating, Denies dysuria, Denies urinary frequency, Denies urinary hesitancy and Denies urinary urgency Musc Denies arthralgias, Denies limited range of motion, Denies muscle cramps and Denies muscle weakness Skin/Breast Denies rash and Denies skin ulcer Neuro Denies Abnormal speech present, Denies confusion, Denies vertigo, Denies dizziness, Denies syncope, Denies headache(s), Denies memory loss and Denies seizure-like activity Psych Denies anxiety, Denies confusion, Denies depression, Denies memory loss, Denies panic attacks and Denies paranoia Endo Denies excessive sweating, Denies fatigue, Denies flushing, Denies polydipsia and Denies polyuria Aller/Immun Denies wheezing Physical exam (Primary Care) Vital Signs: Last Vital Signs Pulse 88 11/22/24 08:01 BP 112/80 11/22/24 08:01 Pulse Ox 97 11/22/24 08:01 Oxygen Delivery Method Room Air 11/22/24 08:01 BMI result Body Mass Index 35.5 BMI Assessment/Plan discussion: High BMI High, discussed plan: lifestyle, weight reduction, dietary and physical activity Tobacco/Smoking Status: Tobacco use Status Tobacco use date assessed 11/22/24 11/22/24 08:05 Patient Tobacco Use Status Never used Tobacco 11/22/24 08:05 e-Cigarette/Vaping Use Never Used 11/22/24 08:05 PHQ-9: PHQ-9 Score PHQ-9: Total score 0 11/22/24 08:05 Depression Screening Interpretation: Negative Thrive Assessment: Date of Thrive Assessment Date Thrive assessed 05/10/24 11/22/24 08:05 Currently or been in a relationship where the following occur: No concerns reported Const General: cooperative, comfortable, no acute distress, alert and awake; No confusion Orientation/consciousness: oriented to person, oriented to place, patient oriented x3 and No confusion HENMT Head: Yes normocephalic Ears: external ears normal and TM's normal bilaterally Face and sinus: No sinus tenderness Mouth: Normal oral and palatal mucosa present and tongue normal Teeth and gingiva: dentition normal and gingiva normal Throat: Yes posterior oropharynx normal, Yes tonsils normal and Yes uvula midline Eyes Conjunctivae: conjunctivae normal Sclerae: sclerae normal Pupils: Equal, round and reactive pupils present EOM: EOMs intact bilaterally Direct Ophthalmoscopy: No no photophobia Neck Neck: Yes no lymphadenopathy, No tender and Yes no JVD Thyroid: Thyroid normal Carotids: no bruits Chest Chest palpation & inspection: no tenderness Resp Effort & Inspection: normal respiratory effort, no audible wheezes, not labored and no stridor Auscultation: no crackles, no rales, no rhonchi and no wheezes Cardio Jugular venous distension: no JVD Rate: regular rate, not bradycardic and not tachycardic Rhythm: regular rhythm Bruits: no carotid bruits Peripheral pulses: Peripheral pulses 2+ throughout GI Inspection: Yes normal to inspection, No abdominal wall ecchymosis and No visible herniation Palpation (GI): Soft to palpation, nontender, no guarding, not rigid and No hepatosplenomegaly present Auscultation: normoactive bowel sounds General: Yes no CVA tenderness Back/Spine/Pelvis Back: no CVA tenderness and No back tenderness Cervical Spine: cervical ROM normal Thoracic/Lumbar Spine: thoracic and lumbar spine normal to inspection, straight leg raise negative bilaterally, No thoraco-lumbar ROM limited and No lumbar spinal tenderness Skin Lesions: no lesions Rashes: no rashes Wounds: no wounds Neuro General: oriented to person, oriented to place, patient oriented x3, CN's II-XI intact bilaterally and No confusion Cranial nerves: Yes Equal, round and reactive pupils present and Yes Normal accommodation reflex present Cognition (Neuro): normal cognition Speech: No Abnormal speech present Gait exam (Neuro): Normal gait present Motor exam (neuro): 5/5 motor strength present throughout Extrem Other: RIGHT SHOULDER SHOULDER: SOME LIMITED OVERHEAD RANGE OF MOTION OF THE RIGHT SHOULDER COMPARED TO LEFT, NOTED MUSCLE ATROPHY OF THE RIGHT SHOULDER MUSCULAR STRUCTURES COMPARED TO THE LEFT SHOULDER Right upper extremity: full ROM; no cyanosis Left upper extremity: full ROM; no cyanosis Right lower extremity: no edema Left lower extremity: no edema Psych Appearance: grossly normal Mental Status: mental status grossly normal Affect: normal affect Attitude: cooperative Thought process: Normal thought process present Coding Level of Care Code Est Pt Prev Care 18-39y([id number]) Diagnoses Annual physical exam Z00.00 Tendinopathy of right shoulder M67.911 Class 1 obesity E66.811 Vasectomy evaluation Z30.09 Balanitis N48.1 Additional Codes PHQ-9 - 00435 - PHQ-9 Billing: Yes ([id number]) Assessment & Plan Assessment & Plan (1) Annual physical exam: Code(s): Z00.00 - Encounter for general adult medical examination without abnormal findings Category: Medical Plan: As per HPI (2) Tendinopathy of right shoulder: Code(s): M67.911 - Unspecified disorder of synovium and tendon, right shoulder Category: Medical Plan: The plan includes obtaining an x-ray of the right shoulder to assess for any structural abnormalities. Referral to an coding specialist home health is recommended for further evaluation and potential interventions such as cortisone injections or physical therapy. Physical therapy is advised to improve range of motion and strength, with exercises using resistance bands. (3) Class 1 obesity: Code(s): E66.811 - Obesity, class 1 Category: Medical Plan: Patient does understand his BMI is over 30 will work on being more physically active and adapting to better eating habits to reduce his weight (4) Vasectomy evaluation: Code(s): Z30.09 - Encounter for other general counseling and advice on contraception Category: Medical Plan: Patient interested in getting a vasectomy (5) Balanitis: Code(s): N48.1 - Balanitis Category: Medical Plan: The patient will be prescribed fluconazole for a longer duration to address the recurrent yeast infection. Concurrent use of antifungal cream is recommended to enhance treatment efficacy. Orders: Orders PT Evaluation and Treatment Today M67.911 - Unspecified disorder of synovium and tendon, right shoulder XR clavicle RT Today M67.911 - Unspecified disorder of synovium and tendon, right shoulder Referrals Orthopedics Referral M67.911 - Unspecified disorder of synovium and tendon, right shoulder Medications: New ketoconazole 2% 1 appl topical DAILY 30 grams 0RF 15 days N48.1 - Balanitis fluconazole 150 mg PO DAILY 7 tabs 0RF 7 days N48.1 - Balanitis
== END 2024-11-22 08:34 | disposition home or self-care (01) ==
LOC: HO.HMCH 07:48
PROVIDERS: Visit Provider Physician Assistant
DX: Z00.00 Encounter for general adult medical examination without abnormal findings (principal); M67.911 Unspecified disorder of synovium and tendon, right shoulder; E66.811 Obesity, class 1; Z68.35 Body mass index [BMI] 35.0-35.9, adult; Z30.09 Encounter for other general counseling and advice on contraception; N48.1 Balanitis

== ENCOUNTER 2025-02-15 09:01 | Outpatient (REF) | payer BC, SELFPAY ==
--- NOTE | ~2025-02-15 | XR_ITS ---
EXAMINATION: X-ray right shoulder X-ray right clavicle CLINICAL INFORMATION: Enthesopathy not classified COMPARISON: None TECHNIQUE: Shoulder 4 views. Clavicle 2 views. FINDINGS: Shoulder: Mild acromioclavicular arthritis. No visible acute fracture, dislocation or suspicious bony lesion. No significant joint space narrowing. No erosions. No abnormal soft tissue calcification. Clavicle: Mild acromioclavicular arthritis. No acute fracture, malalignment or suspicious bony lesion. Sternoclavicular articulation is maintained. XR/XR clavicle RT IMPRESSION: Mild acromioclavicular arthritis. No acute osseous findings. Electronically signed by: Jose Forbes MD 02/15/2025 02:01 PM [facility] [place]
--- NOTE | ~2025-02-15 | XR_ITS ---
EXAMINATION: X-ray right shoulder X-ray right clavicle CLINICAL INFORMATION: Enthesopathy not classified COMPARISON: None TECHNIQUE: Shoulder 4 views. Clavicle 2 views. FINDINGS: Shoulder: Mild acromioclavicular arthritis. No visible acute fracture, dislocation or suspicious bony lesion. No significant joint space narrowing. No erosions. No abnormal soft tissue calcification. Clavicle: Mild acromioclavicular arthritis. No acute fracture, malalignment or suspicious bony lesion. Sternoclavicular articulation is maintained. XR/XR shoulder RT min 2V IMPRESSION: Mild acromioclavicular arthritis. No acute osseous findings. Electronically signed by: Jose Forbes MD 02/15/2025 02:01 PM [facility] [place]
== END 2025-02-15 09:02 | disposition home or self-care (01) ==
LOC: HO.XRAY 09:01
PROVIDERS: PCP Physician Assistant; Visit Provider Physician Assistant
DX: M77.8 Other enthesopathies, not elsewhere classified (principal); M67.911 Unspecified disorder of synovium and tendon, right shoulder
CPT/HCPCS: 73000; 73030

== ENCOUNTER → 2025-02-15 09:07 | Outpatient (BNV) | payer BC, SELFPAY | PROVIDERS: PCP Physician Assistant; Visit Provider Radiology Diagnostic Ultrasound | DX: M19.011 Primary osteoarthritis, right shoulder (principal) | CPT/HCPCS: 73000; 73030 ==

== ENCOUNTER 2025-02-16 08:17 | Outpatient (AMB) | payer BC, SELFPAY ==
--- NOTE | 2025-02-16 08:29 | A.OFFVIS_ITS ---
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 Patient reports about a year, stating his symptoms started after he had been diagnosed with mononucleosis last February. He reports during his sickness he was unable to move his arms for about 4-5 days. He has discomfort in both of his shoulder however mostly his right shoulder. His pain presents with use of his arm, such as outstretching his arm to perform activities. States pain is located inside his shoulder joint. No numbness or tingling. No previous treatment. Allergies Sulfa (Sulfonamide Antibiotics) Allergy (Unknown, Verified 02/16/25 08:38) HIVES Medication List - Last Reconciled 02/16/25 by Cheikh Mary PA-C No Known Home Meds HPI Comments Details: History of Present Illness The patient is a 29 year old male presenting with right shoulder pain which has been bothering him for about a year. He recalls the onset occurred around while he was recovering from mononucleosis; he experienced a sudden pain after sneezing while holding a steering wheel. A few days later, he developed severe pain with any arm movement, to the point of tears, with the right shoulder being more affected than the left. The pain is described as a burning sensation exacerbated by repetitive overhead activities, such as clearing snow from a windshield. He is no longer able to lift his children above shoulder height due to the pain. Sleeping on the affected shoulder causes significant soreness, which is somewhat relieved by a hot shower in the morning. He denies any numbness or tingling extending down the arm. His primary care physician ordered X-rays of the shoulder, which were performed yesterday. He has no history of diabetes. Social History - Functional Status: The patient reports a history of a mostly active life, but has been unable to go to the gym or lift weights for the past year due to fear of worsening his shoulder pain. - He is unable to lift his two children above shoulder height. [facility] Surgical History History of knee surgery History of tonsillectomy Family History Father COPD (chronic obstructive pulmonary disease) Mother Lung cancer Social History (Updated 11/22/24 @ 08:11 by José Biggs PA-C) Housing: House Alcohol intake: current Alcohol intake frequency: a few times a month Alcohol type: beer and other Patient Tobacco Use Status: Never used Tobacco e-Cigarette/Vaping Use: Never Used Second Hand Smoke Exposure: No service: No Current occupational status: employed Current occupation: [employer] Current occupational exposures/hazards: No Cognitive needs: No Hearing needs: No Vision needs: No Review of Systems Narrative Review of Systems - Musculoskeletal: Reports right-sided shoulder pain for approximately one year, with some discomfort in the left shoulder as well. - Pain is worse with repetitive motion and overhead reaching. - Reports chronic soreness in knees and ankles. - Constitutional: Reports history of fever during an episode of mononucleosis. - Neurological: Denies numbness or tingling down the arm. Physical Exam Exam Exam: Physical Exam - Musculoskeletal (Right Shoulder): Inspection reveals the right clavicle appears to sit lower than the left. - Active range of motion shows painful external rotation, with pain localized to the anterior shoulder. - Internal rotation is painful but he is able to perform lift-off from back. - Passive cross-body adduction elicits tightness. - There is tenderness to palpation over the proximal biceps tendon. - No tenderness over the acromioclavicular joint. - Strength is good overall, with tenderness elicited on Tiera's and full can testing. - Belly press test is normal. Vital Signs: BMI result Body Mass Index 35.4 Office Procedures AMB Joint Injection/Aspiration Joint Injection/Aspiration Primary Site: Right Shoulder Prep: site was prepped using aseptic technique, ethochloride spray was applied and injection warnings given Injected: 40 mg of, Decadron, with 3 mL of, 1% plain Lidocaine, 0.25% Bupivacaine and in the subcromial space Approach Used: posterolateral Procedure: The patient tolerated the procedure well and there was some relief with the local anesthesia Coding 37541 - Glenohumeral/Tronchanteric Bursa/Intraarticular Procedure code (CPT) selection complete Assessment & Plan Assessment & Plan (1) Biceps tendonitis on right: Code(s): M75.21 - Bicipital tendinitis, right shoulder Category: Medical (2) Subacromial bursitis of right shoulder joint: Code(s): M75.51 - Bursitis of right shoulder Category: Medical Plan The patient's right shoulder pain is likely due to an inflammatory process involving the rotator cuff and proximal biceps tendon. Recent X-rays showed well-preserved joint space, no evidence of arthritis, and no acromial morphology predisposing to impingement. The physical examination reveals intact rotator cuff strength but signs of irritation and biceps tendon tenderness. The plan is to perform a right subacromial cortisone injection today to reduce inflammation. A referral for physical therapy was offered to focus on strengthening, restoring proper posture, and preventing recurrence; however, he would prefer HEP which was printed. Follow-up is recommended in six weeks to assess his response to treatment if symptoms persist, otherwise prn. Consent The risks, benefits, and alternatives of a right subacromial cortisone injection were discussed with the patient. The primary benefit discussed was to relieve inflammation and pain, with the goal of returning him to his normal activities. The alternative of forgoing the injection and proceeding with physical therapy alone was also mentioned. The patient understood the information provided and gave verbal consent to proceed with the injection during today's visit. Patient was informed and verbally consented to the use of an ambient scribe for clinic note documentation during this visit. Coding Level of Care Code New Pt Level 3 (17739) Add On Problem Visit Only Diagnoses Biceps tendonitis on right M75.21 Subacromial bursitis of right shoulder joint M75.51 CPT Codes Coding - Joint 7: 42377 - Glenohumeral/Tronchanteric Bursa/Intraarticular ([id number])
[2025-02-16 08:35] VITALS: BMI 35.4
== END 2025-02-16 09:03 | disposition home or self-care (01) ==
LOC: HO.HOS 08:18
PROVIDERS: Absent Provider Physician Assistant; PCP Physician Assistant; Visit Provider Physician Assistant
DX: M75.21 Bicipital tendinitis, right shoulder (principal); M75.51 Bursitis of right shoulder
CPT/HCPCS: 20610; 99203

== ENCOUNTER → 2025-02-16 08:17 | Outpatient (BNVA) | payer BC, SELFPAY | PROVIDERS: Absent Provider Physician Assistant; PCP Physician Assistant; Visit Provider Physician Assistant | DX: M75.21 Bicipital tendinitis, right shoulder (principal); M75.51 Bursitis of right shoulder | CPT/HCPCS: 20610; J0665; J1100; J2003 ==

== ENCOUNTER 2025-02-27 11:03 | Outpatient (REF) | payer BC, SELFPAY ==
--- NOTE | ~2025-02-27 | US_ITS ---
CLINICAL HISTORY: N20.0 - Calculus of kidney US kidneys Comparison: Abdomen ultrasound 03/05/2024, and CT abdomen 02/29/2024 Findings: Right kidney normal size and echotexture, 12.0 cm length. No hydronephrosis. Normal color flow. Left kidney normal size and echotexture, 11.4 cm length. No hydronephrosis. Normal color flow. Impression: 1. Unremarkable kidneys This document has been electronically signed by: Jesus Jones MD on 02/28/2025 13:45:22
== END 2025-02-27 11:04 | disposition home or self-care (01) ==
LOC: HO.US 11:03
PROVIDERS: PCP Physician Assistant; Visit Provider Urology
DX: N20.0 Calculus of kidney (principal)
CPT/HCPCS: 76775

== ENCOUNTER → 2025-02-27 11:04 | Outpatient (BNV) | payer BC, SELFPAY | PROVIDERS: PCP Physician Assistant; Visit Provider Radiology Diagnostic Radiology | DX: N20.0 Calculus of kidney (principal) | CPT/HCPCS: 76775 ==